=== PATIENT | male | born 1980 | race Caucasian/White ===

== ENCOUNTER 2020-04-06 15:30 | Outpatient (REF) | payer OTHER, SELFPAY | END 2020-04-06 15:31 | disposition home or self-care (01) | LOC: HO.LAB 15:30 | PROVIDERS: Visit Provider Nurse Practitioner Family | DX: J98.8 Other specified respiratory disorders (principal); Z20.822 Contact with and (suspected) exposure to COVID-19 | CPT/HCPCS: 36415; U0003 ==

== ENCOUNTER 2021-07-09 01:42 | Emergency (ER) | payer OTHER, SELFPAY ==
[2021-07-09 01:54] VITALS: BP 144/95; PULSE 75; RESP 18; TEMP 36.4; O2SAT 100; BMI 27.1
--- NOTE | 2021-07-09 04:26 | PC.NURSE ---
Andi's significant other (Fidelina) had to leave patient's bedside to go to work for 5am today. States he doesn't have a phone with him or anything, so can you call me when he gets discharged so I can try to arrange a ride home for him? . Fidelina's phone number is . Andi currently sleeping, awaiting ED MD evaluation.
--- NOTE | 2021-07-09 04:50 | ED.EXTPRO ---
HPI - Extremity Problem General Chief complaint: Extremity Injury, Upper Stated complaint: lac on right hand Time Seen by Provider: 07/09/21 04:45 Source: patient Mode of arrival: ambulatory Limitations: no limitations History of Present Illness HPI Narrative: Patient comes to the emergency room complaining of a laceration to the left palm. Patient was shopping at a knife and accidentally cut the palm of his hand. Patient denies any other injuries Related Data Previous Rx's Medication Instructions Recorded albuterol sulfate 2.5 mg (3 mL) INHALATION Q6H #15 ml 04/06/20 albuterol sulfate 90 mcg/actuation 2 puff INHALATION Q4-6H PRN #6.7 g 04/06/20 aerosol inhaler azithromycin 250 mg tablet See Rx Instructions PO .COMPLEX #6 04/06/20 tab prednisone 20 mg tablet 20 mg PO DAILY 9 Days #18 tab 04/06/20 ondansetron 4 mg disintegrating 4 mg PO Q6H PRN #20 tab 03/23/21 tablet Allergies Allergy/AdvReac Type Severity Reaction Status Date / Time No Known Allergies Allergy Verified 07/09/21 01:54 Review of Systems Review of Systems: Constitutional : No Weight loss, No Fever, No Chills, No Night Sweats, No Fatigue, No Malaise ENT/Mouth : No Hearing loss, No Ear Pain, No Nasal Congestion, No Sinus Pain, No Hoarseness, No sore throat, No Rhinorrhea, No Swallowing Difficulty Eyes: No Eye Pain, No Swelling, No Redness, No Foreign Body, No Discharge, No Vision Changes Cardiovascular : No Chest Pain, No SOB, No Dyspnea on Exertion, No Orthopnea, No Edema, No Palpitations Respiratory : No Cough, No Sputum, No Wheezing, No Smoke Exposure, No Dyspnea Gastrointestinal : No Nausea, No Vomiting, No Diarrhea, No Constipation, No abdominal Pain, No Hematochezia, No Melena Genitourinary : no irregular bleeding, No Dysuria, No Urinary Frequency, No Hematuria, No Urinary Incontinence, No Urgency, No Flank Pain, No Urinary Flow Changes, No Hesitancy Musculoskeletal : No joint pain, No Myalgias, No Joint Swelling Skin : laceration to the palm of the left hand Neuro : No Weakness, No Numbness, No Paresthesias, No Loss of Consciousness, No Dizziness, No Headache Psych : No Anxiety/Panic, No Depression, No SI/HI/AH/VH, No Social Issues, Heme/Lymph: No Bruising, No Bleeding,No Lymphadenopathy Endocrine : No Polyuria, No Polydipsia, No Temperature Intolerance [facility] Social History Social History Advance Directives: No Physical Exam Vital Signs: Vital Signs: Last Vital Signs Temp 97.8 F 07/09/21 04:58 Pulse 67 07/09/21 04:58 Resp 12 07/09/21 04:58 BP 128/89 07/09/21 04:58 Pulse Ox 100 07/09/21 04:58 BMI result Body Mass Index 27.1 Const: Other: Appearance: Alert. Oriented X3. No acute distress. Eyes: Pupils equal, round and reactive to light. ENT: Pharynx normal. Neck: Normal inspection. Neck supple. No lymph nodes noted. No crepitus CVS: Normal heart rate and rhythm. Pulses normal. Normal S1 and S2 Respiratory: No respiratory distress. Breath sounds normal. No Wheezing. No rales Abdomen: Soft and nontender. No rigidity. No distention. Skin: Skin warm and dry. In the palm of the hand there is a 2 cm laceration. Extremities: No lower extremity edema. No Lacerations. No Rash patient is able to flex and extend all fingers of the hand, abduct and adduct. Wound was examined under bloodless field, not tendons were severed Neuro: Oriented X 3. No motor deficit. No sensory deficit. Moving all extremities. No slurred speech. CN 2 through 12 grossly intact Psych: calm, cooperative, normal affect Course Course Course Narrative: Patient was given Tdap booster Laceration was repaired with 3 stitches Procedures Laceration Laceration 1: Site: hand Side (If applicable): left Size (cm): 2 Description: linear and flap Depth: simple, single layer Local Anesthetic: lidocaine 2% Amount of anesthesia used (mL): 6 Pre-repair: wound explored and irrigated extensively Skin layer closed with: nylon Size (cm): 3-0 Number of sutures: 3 Discharge Plan Discharge Clinical Impression: Laceration of hand Patient Disposition: Home, Self-Care Instructions: Laceration (ED) Additional Instructions: Your sutures need to be removed in 7-10 days. If you see signs of infection such as redness, pus drainage, fever chills, please return to the emergency room. follow-up with your primary care physician tomorrow. If you have any worsening or new symptoms, please return to the emergency room or call 911 Prescriptions: No Action prednisone 20 mg tablet 20 mg PO DAILY 9 Days Qty: 18 0RF Rx Instructions: 3 tabs/60mg for 3 days 2 tabs/40mg for 3 days 1 tab/20mg for 3 days albuterol sulfate 90 mcg/actuation HFA aerosol inhaler 2 puff inhalation Q4-6H PRN (Reason: shortness of breath or wheezing) Qty: 6.7 0RF albuterol sulfate 2.5 mg /3 mL (0.083 %) solution for nebulization 2.5 mg inhalation Q6H Qty: 15 0RF azithromycin 250 mg tablet See Rx Instructions PO .COMPLEX Qty: 6 0RF Rx Instructions: take 500 mg today (day 1), then 250 mg for 4 days (days 2-5) PO ondansetron 4 mg tablet,disintegrating 4 mg PO Q6H PRN (Reason: nausea and vomiting) Qty: 20 0RF Stand Alone Forms: Work/School Release
[2021-07-09 04:58] VITALS: BP 128/89; PULSE 67; RESP 12; TEMP 36.6; O2SAT 100
[2021-07-09] MEDS: Diphth,Pertus(ACell),Tet Adult 0.5 ML SYRINGE IM (05:00)
[2021-07-09] MEDS: Lidocaine HCl 2 % MPF 5 ML VIAL 10 ML INFILTRATI (05:03)
== END 2021-07-09 05:55 | disposition home or self-care (01) ==
PROVIDERS: Emergency Provider Emergency Medicine
DX: S61.412A Laceration without foreign body of left hand, initial encounter (principal); S60.512A Abrasion of left hand, initial encounter; W26.0XXA Contact with knife, initial encounter; Y93.9 Activity, unspecified; Y92.9 Unspecified place or not applicable; Y99.9 Unspecified external cause status; Z79.899 Other long term (current) drug therapy
CPT/HCPCS: 12001; 90471; 90715; 99284

== ENCOUNTER 2021-11-23 12:14 | Inpatient (IN) | payer OTHER, SELFPAY ==
--- NOTE | ~2021-11-23 | XR_ITS ---
EXAMINATION: XR CHEST CLINICAL INFORMATION: Chest pain COMPARISON: None TECHNIQUE: 2 views of the chest were obtained. FINDINGS: The mediastinum, jose, vasculature, and visualized pleural margins are within normal limits. Slightly low lung volumes. No consolidation, mass or major zone of atelectasis. No suspicious finding in the visualized upper abdomen XR/XR chest 2V IMPRESSION: No etiology for chest pain demonstrated
--- NOTE | ~2021-11-23 | US_ITS ---
EXAMINATION: US ABDOMEN COMPLETE CLINICAL INFORMATION: Abdominal pain and elevated LFTs. COMPARISON: None TECHNIQUE: Real-time imaging of the abdominal viscera. FINDINGS: PANCREAS: The pancreas is obscured by overlying gas. ABDOMINAL AORTA: The proximal, mid, and distal segments are normal in caliber. INFERIOR VENA CAVA: Visualized portions are normal. LIVER: The liver is normal in size. The liver contour is normal. Parenchymal echogenicity is increased. No focal hepatic lesion. There is no intrahepatic biliary duct dilatation seen. GALLBLADDER: There are several echogenic mobile stones with normal wall thickness of 0.20 cm. No pericholecystic fluid collection. No tenderness in the right upper quadrant by ultrasound probe. COMMON BILE DUCT: Normal in caliber measuring 0.27 cm in diameter. RIGHT KIDNEY: Normal. No hydronephrosis. No renal calculi or focal parenchymal lesions. The kidney measures 10.2 cm in maximum dimension. LEFT KIDNEY: Normal. No hydronephrosis. No renal calculi or focal parenchymal lesions. The kidney measures 11.7 cm in maximum dimension. SPLEEN: Normal. The spleen measures 13.4 cm in maximum dimension. FREE FLUID: None. US/US abdomen complete IMPRESSION: Cholelithiasis without wall thickening. Hepatic steatosis without focal lesion. The rest of the abdominal ultrasound is unremarkable.
--- NOTE | 2021-11-23 12:16 | ECG_ITS ---
Test Reason : chest pain Blood Pressure : / mmHG Vent. Rate : 079 BPM Atrial Rate : 079 BPM P-R Int : 144 ms QRS Dur : 094 ms QT Int : 388 ms P-R-T Axes : 007 059 -02 degrees QTc Int : 444 ms Normal sinus rhythm Abnormal QRS-T angle, consider primary T wave abnormality Abnormal ECG No previous ECGs available Referred By: Generic ED Physician Electronically Signed By:JOHANA ALEJO
[2021-11-23 12:26] VITALS: BP 144/91; PULSE 86; RESP 18; O2SAT 98; BMI 27.1
[2021-11-23 13:18] LABS: Magnesium 1.6 mg/dL (1.6-2.6)
[2021-11-23 13:23] LABS: Alanine Aminotransferase 82 U/L (0-40); Albumin Level 3.7 g/dL (3.5-5.0); Alkaline Phosphatase 102 U/L (39-117); Aspartate Amino Transferase 179 U/L (5-37); Bilirubin Direct 0.9 mg/dL (0.0-0.5); Bilirubin Total 1.7 mg/dL (0.0-1.0); Total Protein 7.8 g/dL (6.5-8.0)
--- NOTE | 2021-11-23 15:35 | ED_ITS ---
HPI - Chest Pain General Chief Complaint: Chest Pain Stated Complaint: Upper L chest pain Time Seen by Provider: 11/23/21 15:22 Source: patient Mode of arrival: ambulatory Limitations: no limitations History of Present Illness HPI narrative: 41-year-old male with a history of alcohol abuse and dependence, asthma who presents to the ER for evaluation of intermittent left-sided chest pain for the last 2 weeks. He feels like it is anxiety related because it comes and goes when he is anxious. It is located in his left upper chest and does not radiate. It is sharp in nature. He has no pain at present. He also reports that he has significant bruising on his left abdomen and his thighs with no known injury. Koffi ruth is a daily drinker and drinks about 6 or 7 beers per day. He has been through withdrawal at home, never hospitalized. In the past he has been told he has thrombocytopenia. He presents with his girlfriend who helps provide history. She states he vomits almost every morning. He does not eat any food because he never has an appetite. He wakes up with new bruises frequently and denies falls or trauma. He has a large bruise on the left side of his abdomen for the last 3 weeks without pain. He also has them on his bilateral lower extremities. He also complains of chronic fatigue for the last 1 year. MD complaint: chest pain Pertinent past history: asthma and other (ETOH abuse) Onset (ago): week(s) Timing of current episode: episodic Prior episodes: Yes Onset: during rest Pain location: left chest Pain radiation: none Severity: moderate Pain scale (0-10): 5 Quality: sharp Relieving factors: rest Associated symptoms: nausea, vomiting, diaphoresis and other (tremors) Treatment prior to arrival: none Risk Factors Coronary artery disease risk factors: none Thoracic aortic dissection risk factors: none Related Data Previous Rx's Medication Instructions Recorded albuterol sulfate 2.5 mg/3 mL 2.5 mg (3 mL) inhalation Q6H #15 mL 04/06/20 (0.083 %) solution for nebulization albuterol sulfate 90 mcg/actuation 2 puff inhalation Q4-6H PRN 04/06/20 aerosol inhaler shortness of breath or wheezing #6.7 grams azithromycin 250 mg tablet See Rx Instructions PO .COMPLEX #6 04/06/20 tabs prednisone 20 mg tablet 20 mg PO DAILY 9 days #18 tabs 04/06/20 ondansetron 4 mg disintegrating 4 mg PO Q6H PRN nausea and 03/23/21 tablet vomiting #20 tabs Allergies Allergy/AdvReac Type Severity Reaction Status Date / Time No Known Allergies Allergy Verified 07/09/21 01:54 Review of Systems Review of Systems: Constitutional: No Fever, + Chills ENT/Mouth: No sore throat, No Rhinorrhea, No Swallowing Difficulty Eyes: No Eye Pain, No Swelling, No Redness Cardiovascular: + Chest Pain, No SOB, No Orthopnea, No Edema Respiratory: No Cough, No Sputum, No Wheezing, No dyspnea Gastrointestinal: + Nausea, + Vomiting, No Diarrhea, No abdominal Pain, No Hematochezia, No Melena Genitourinary: No Dysuria, No Urinary Frequency, No Hematuria Musculoskeletal: No joint pain, No Myalgias Skin: No Skin Lesions, No rash Neuro: No Weakness, No Numbness, No Dizziness, No Headache Psych: + Anxiety/Panic, + Depression Heme/Lymph: + Bruising, No Lymphadenopathy Endocrine: No Polyuria, No Polydipsia PMFSH Social History Social History Advance Directives: No Advance Directives Information Provided: No Physical Exam Vital Signs: Vital Signs: Last Vital Signs Pulse 86 11/23/21 12:26 Resp 18 11/23/21 12:26 BP 144/91 H 11/23/21 12:26 Pulse Ox 98 11/23/21 12:26 O2 Del Method 11/23/21 12:26 BMI result Body Mass Index 27.1 Appearance: Alert. Oriented X3. No acute distress. Eyes: Pupils equal, round and reactive to light. large pedunculated mole under left eye ENT: Pharynx normal. Neck: Normal inspection. Neck supple. CVS: Normal heart rate and rhythm. Pulses normal. Non-tender chest pain Respiratory: No respiratory distress. Breath sounds normal. Abdomen:Moderate sized ecchymotic area on the left side of abdomen, Soft and nontender. +BS x4 Skin: Skin warm and dry. Normal skin color. Normal skin turgor. No rashes. Extremities: Multiple moderate sized ecchymosis in various stages of healing on his bilateral LE, left upper arm. minimally tender. Neuro: Oriented X 3. No motor deficit. No sensory deficit. Course Course Course Narrative: 41 yo male with history of ETOH abuse/dependence, asthma and thrombocytopenia who presents to the ER for evaluation of intermittent left sided chest pains x2 weeks, spontaneous bruising, fatigue and recurrent vomiting. On exam he has significant ecchymosis on his bilateral LE, LUE and abdominal wall. CBC, coags, CMP pending. Reevaluation(s) Reevaluation #1: patient vomiting (nonbloody but bilious) and tremulous. IV established and zofran and fluids given. concern for possible early etoh withdrawal. will monitor CIWAs. platelets 26K. H/H is normal with WBC 4.0. Renal function normal. Mild elevation of liver enzymes and mild coagulopathy. No evidence of active bleeding. Records requested from [facility] One year ago. It appears as if his platelet count was some routine 50 and 60,000 at that time. spoke at length with the patient about importance of abstaining from alcohol and he is in agreement he needs detox. spoke with Dr. Rodriguez from [facility], would recommend admission for close observation and trending of platelets, and H/H. Reevaluation #2: nausea improved. tolerating ice chips. will plan to start PO phenobarbital protocol for etoh withdrawal and admit for further management. patient and updated on plan of care. hospitalist TT for admission Consultations Consultation #1: [facility] - Dr. Rodriguez MDM - Chest Pain Lab Data Result diagrams: 11/23/21 15:58 11/23/21 15:58 Labs: Lab Results 11/23/21 11/23/21 11/23/21 Range/Units 12:47 12:47 15:58 WBC 4.0 L (4.8-10.8) X10*3/uL RBC 4.79 (4.60-5.80) X10*6/uL Hgb 14.3 (14.0-18.0) g/dl Hct 42.5 (42.0-52.0) % MCV 88.7 (80.0-98.0) fL MCH 29.9 (27.0-33.0) pg MCHC 33.6 (31.0-36.0) g/dl RDW 14.8 (11.0-16.0) % Plt Count 26 L (160-400) X10*3/uL MPV 9.9 (9.4-12.4) fL Immature Gran % (Auto) 0.3 (0.0-0.4) % Neut % (Auto) 58.3 (45-73) % Lymph % (Auto) 30.1 (20-40) % Burnett % (Auto) 8.8 (2-11) % Eos % (Auto) 1.5 (0-4) % Baso % (Auto) 1.0 (0-2) % Lymph # (Auto) 1.2 (1.2-4.9) X10*3/uL Burnett # (Auto) 0.4 (0.1-1.2) X10*3/uL Eos # (Auto) 0.1 (0.0-0.4) X10*3/uL Baso # (Auto) 0.0 (0.0-0.2) X10*3/uL Abs Immat Gran (auto) 0.01 (0.00-0.03) X10*3/uL Absolute Neuts (auto) 2.3 (2.0-8.3) x10*3/uL Absolute Nucleated RBC 0.000 (0.0-0.012) X10*3/uL Nucleated RBC % (auto) 0.0 (0.0-0.2) /100WBC PT (10.0-13.1) SEC INR (0.9-1.1) APTT (26.0-36.4) SEC Sodium (135-145) mmol/L Potassium (3.3-5.1) mmol/L Chloride (96-108) mmol/L Carbon Dioxide (22-29) mmol/L Anion Gap (12-20) BUN (9-16) mg/dL Creatinine (0.5-1.4) mg/dL Estim Creat Clear Calc Estimated GFR Random Glucose (60-115) mg/dL Calcium (8.4-10.2) mg/dL Magnesium 1.6 (1.6-2.6) mg/dL Total Bilirubin 1.7 H (0.0-1.0) mg/dL Direct Bilirubin 0.9 H (0.0-0.5) mg/dL AST 179 H (5-37) U/L ALT 82 H (0-40) U/L Alkaline Phosphatase 102 (39-117) U/L Troponin I High Sens (<3.5-35.0) ng/L Total Protein 7.8 (6.5-8.0) g/dL Albumin 3.7 (3.5-5.0) g/dL Urine Color Urine Appearance Urine pH (5.0-9.0) Ur Specific [place] (1.005-1.025) Urine Protein (Neg-Trace) mg/dL Urine Glucose (UA) (Negative) mg/dL Urine Ketones (Negative) mg/dL Urine Blood (Negative) Urine Nitrite (Negative) Ur Leukocyte Esterase (Negative) Urine RBC (0-2) /HPF Urine WBC (0-5) /HPF Ur Squamous Epith Cells (0-2) /HPF Urine Bacteria (None Seen) Hyaline Casts (0-2) /LPF Ethyl Alcohol mg/dL 11/23/21 11/23/21 11/23/21 Range/Units 15:58 15:58 15:58 WBC (4.8-10.8) X10*3/uL RBC (4.60-5.80) X10*6/uL Hgb (14.0-18.0) g/dl Hct (42.0-52.0) % MCV (80.0-98.0) fL MCH (27.0-33.0) pg MCHC (31.0-36.0) g/dl RDW (11.0-16.0) % Plt Count (160-400) X10*3/uL MPV (9.4-12.4) fL Immature Gran % (Auto) (0.0-0.4) % Neut % (Auto) (45-73) % Lymph % (Auto) (20-40) % Burnett % (Auto) (2-11) % Eos % (Auto) (0-4) % Baso % (Auto) (0-2) % Lymph # (Auto) (1.2-4.9) X10*3/uL Burnett # (Auto) (0.1-1.2) X10*3/uL Eos # (Auto) (0.0-0.4) X10*3/uL Baso # (Auto) (0.0-0.2) X10*3/uL Abs Immat Gran (auto) (0.00-0.03) X10*3/uL Absolute Neuts (auto) (2.0-8.3) x10*3/uL Absolute Nucleated RBC (0.0-0.012) X10*3/uL Nucleated RBC % (auto) (0.0-0.2) /100WBC PT (10.0-13.1) SEC INR (0.9-1.1) APTT (26.0-36.4) SEC Sodium 144 (135-145) mmol/L Potassium 4.2 (3.3-5.1) mmol/L Chloride 106 (96-108) mmol/L Carbon Dioxide 25 (22-29) mmol/L Anion Gap 17 (12-20) BUN 10 (9-16) mg/dL Creatinine 0.76 (0.5-1.4) mg/dL Estim Creat Clear Calc 122.0 Estimated GFR > 60 Random Glucose 98 (60-115) mg/dL Calcium 8.5 (8.4-10.2) mg/dL Magnesium (1.6-2.6) mg/dL Total Bilirubin (0.0-1.0) mg/dL Direct Bilirubin (0.0-0.5) mg/dL AST (5-37) U/L ALT (0-40) U/L Alkaline Phosphatase (39-117) U/L Troponin I High Sens < 3.5 (<3.5-35.0) ng/L Total Protein (6.5-8.0) g/dL Albumin (3.5-5.0) g/dL Urine Color Urine Appearance Urine pH (5.0-9.0) Ur Specific [place] (1.005-1.025) Urine Protein (Neg-Trace) mg/dL Urine Glucose (UA) (Negative) mg/dL Urine Ketones (Negative) mg/dL Urine Blood (Negative) Urine Nitrite (Negative) Ur Leukocyte Esterase (Negative) Urine RBC (0-2) /HPF Urine WBC (0-5) /HPF Ur Squamous Epith Cells (0-2) /HPF Urine Bacteria (None Seen) Hyaline Casts (0-2) /LPF Ethyl Alcohol 180 mg/dL 11/23/21 11/23/21 Range/Units 18:32 18:32 WBC (4.8-10.8) X10*3/uL RBC (4.60-5.80) X10*6/uL Hgb (14.0-18.0) g/dl Hct (42.0-52.0) % MCV (80.0-98.0) fL MCH (27.0-33.0) pg MCHC (31.0-36.0) g/dl RDW (11.0-16.0) % Plt Count (160-400) X10*3/uL MPV (9.4-12.4) fL Immature Gran % (Auto) (0.0-0.4) % Neut % (Auto) (45-73) % Lymph % (Auto) (20-40) % Burnett % (Auto) (2-11) % Eos % (Auto) (0-4) % Baso % (Auto) (0-2) % Lymph # (Auto) (1.2-4.9) X10*3/uL Burnett # (Auto) (0.1-1.2) X10*3/uL Eos # (Auto) (0.0-0.4) X10*3/uL Baso # (Auto) (0.0-0.2) X10*3/uL Abs Immat Gran (auto) (0.00-0.03) X10*3/uL Absolute Neuts (auto) (2.0-8.3) x10*3/uL Absolute Nucleated RBC (0.0-0.012) X10*3/uL Nucleated RBC % (auto) (0.0-0.2) /100WBC PT 15.1 H (10.0-13.1) SEC INR 1.3 H (0.9-1.1) APTT 36.6 H (26.0-36.4) SEC Sodium (135-145) mmol/L Potassium (3.3-5.1) mmol/L Chloride (96-108) mmol/L Carbon Dioxide (22-29) mmol/L Anion Gap (12-20) BUN (9-16) mg/dL Creatinine (0.5-1.4) mg/dL Estim Creat Clear Calc Estimated GFR Random Glucose (60-115) mg/dL Calcium (8.4-10.2) mg/dL Magnesium (1.6-2.6) mg/dL Total Bilirubin (0.0-1.0) mg/dL Direct Bilirubin (0.0-0.5) mg/dL AST (5-37) U/L ALT (0-40) U/L Alkaline Phosphatase (39-117) U/L Troponin I High Sens (<3.5-35.0) ng/L Total Protein (6.5-8.0) g/dL Albumin (3.5-5.0) g/dL Urine Color Dark Yellow Urine Appearance Clear Urine pH 6.5 (5.0-9.0) Ur Specific [place] >= 1.030 H (1.005-1.025) Urine Protein 30 (1+) H (Neg-Trace) mg/dL Urine Glucose (UA) Negative (Negative) mg/dL Urine Ketones Trace (Negative) mg/dL Urine Blood Negative (Negative) Urine Nitrite Positive H (Negative) Ur Leukocyte Esterase Trace H (Negative) Urine RBC 0-2 (0-2) /HPF Urine WBC 0-5 (0-5) /HPF Ur Squamous Epith Cells 0-2 (0-2) /HPF Urine Bacteria None Seen (None Seen) Hyaline Casts 0-2 (0-2) /LPF Ethyl Alcohol mg/dL Critical Care Time Critical Care Time Critical Care Time: Yes Total Critical Care Time: 36 Attestation: I have personally provided critical care time exclusive of time spent on separately billable procedures. Time includes review of lab data, radiology results, discussion with consultants, and monitoring for potential decompensation. Intervention performed as documented. Discharge Plan Discharge Clinical Impression: Thrombocytopenia, Alcohol abuse Patient Disposition: Admitted As Inpatient
[2021-11-23 16:04] LABS: MANUAL DIFF FLAG NO
[2021-11-23 16:07] LABS: Eosinophils Absolute Auto 0.1 X10*3/uL (0.0-0.4); Eosinophils Percent Auto 1.5 % (0-4); Hematocrit 42.5 % (42.0-52.0); Hemoglobin 14.3 g/dl (14.0-18.0); Imm Gran Abs Auto 0.01 X10*3/uL (0.00-0.03); Imm Gran Pct Auto 0.3 % (0.0-0.4); Lymphocytes Absolute Auto 1.2 X10*3/uL (1.2-4.9); Lymphocytes Percent Auto 30.1 % (20-40); Mean Corpuscular HGB Conc 33.6 g/dl (31.0-36.0); Mean Corpuscular Hemoglobin 29.9 pg (27.0-33.0); Mean Corpuscular Volume 88.7 fL (80.0-98.0); Mean Platelet Volume 9.9 fL (9.4-12.4); Monocytes Absolute Auto 0.4 X10*3/uL (0.1-1.2); Monocytes Percent Auto 8.8 % (2-11); Neutrophils Absolute Auto 2.3 x10*3/uL (2.0-8.3); Neutrophils Percent Auto 58.3 % (45-73); Platelet Count 26 X10*3/uL (160-400); Red Blood Count 4.79 X10*6/uL (4.60-5.80); Red Cell Distribution Width 14.8 % (11.0-16.0)
[2021-11-23 16:17] LABS: Ethanol 180 mg/dL
[2021-11-23 16:22] LABS: Anion Gap 17 (12-20); Blood Urea Nitrogen 10 mg/dL (9-16); Calcium 8.5 mg/dL (8.4-10.2); Carbon Dioxide 25 mmol/L (22-29); Chloride 106 mmol/L (96-108); Estimated Glomerular Filt Rate > 60; Glucose Random 98 mg/dL (60-115); Potassium 4.2 mmol/L (3.3-5.1); Sodium 144 mmol/L (135-145)
[2021-11-23 16:28] LABS: Troponin-I High Sensitivity < 3.5 ng/L (<3.5-35.0)
[2021-11-23] MEDS: Ondansetron ODT 4 MG TAB.RAPDIS TRANSLINGU (17:13)
[2021-11-23] MEDS: 0.9 % Sodium Chloride 1,000 ML 999 ML IVCONT (18:37)
[2021-11-23 18:47] LABS: Appearance Urine Clear; Color Urine Dark Yellow; Glucose Urine UA Negative (Negative); Leukocyte Esterase Urine Trace (Negative); Nitrite Urine Positive (Negative); PH 6.5 (5.0-9.0); Specific Gravity - Urine >= 1.030 (1.005-1.025); Urine Blood Negative (Negative); Urine Ketones Trace mg/dL (Negative); Urine Protein 30 (1+) mg/dL (Neg-Trace)
[2021-11-23 18:48] LABS: INTERNATIONAL NORM RATIO 1.3 (0.9-1.1); Prothrombin Time 15.1 SEC (10.0-13.1)
[2021-11-23 18:51] LABS: Partial Thromboplastin Time 36.6 SEC (26.0-36.4)
[2021-11-23 18:59] LABS: Bacteria Urine None Seen (None Seen); Hyaline Casts Urine 0-2 /LPF (0-2); RBC Urine 0-2 /HPF (0-2); Squamous Epithelial Cell Urine 0-2 /HPF (0-2); UACC Culture Trigger YES; WBC Urine 0-5 /HPF (0-5)
--- NOTE | 2021-11-23 19:49 | PHA.MEDREC ---
Pharmacy Consult ? Medication Reconciliation Pharmacy has completed the medication reconciliation.
[2021-11-23 20:10] VITALS: BP 140/79; PULSE 72; RESP 18; O2SAT 99
[2021-11-23] MEDS: PHENobarbitaL sodium 130 MG/ML IM ONCE 264 MG IM (20:23)
[2021-11-23 21:07] LABS: COVID-19 Test Negative (Negative)
--- NOTE | 2021-11-23 21:27 | P.HPHOSP_ITS ---
History of Present Illness Date of Service: 11/23/21 Chief Complaint: chest pain This is a 41-year-old male with past medical history of alcohol abuse, as well as asthma presents to the hospital with complaints of left-sided chest pain. Patient reports that the pain occurred spontaneously, feels like pressure, about 4/10, nonradiating, no exacerbating or alleviating factors, intermittent. Patient reports that when he has action is also gets this pain, he denies any recent travel, no recent sick contacts, no recent immobilization or history of cancer. No recent surgery. He denies any cough, no shortness of breath, he has also had vomiting for the past 6 months, he reports that he has epigastric abdominal pain that is been going on for the past 6 months, associated with 1-2 episodes of vomiting daily. He has also had poor oral intake and low appetite. Patient also reports that for the past several months has had bruises all over his body that occurs spontaneously without any trauma or injury. He does endorse that since childhood he has had recurrent nose bleeds that last 1-2 hours, he also endorses bleeding from the gums every time he brushes his teeth. He denies any hematuria and no blood in vomit. No melena or hematochezia. Does reports that he drinks >6 bottles of beer daily, has had withdrawals before but no withdrawal seizures. He denies any headache, change in vision, no urinary symptoms and no lower extremity edema. No numbness tingling or weakness. On arrival the ED patient hemodynamically stable Labs are significant for WBC count of 4.0, [place] [address], PT of 15.1, INR of 1.3, PTT of 36.6, total bili of 1.7 AST of 179, ALT of 82 urine positive for nitrites and leukocyte Estrace and some WBC Troponin negative EKG should reviewed by me shows T-wave inversions in V1 with no other significant abnormality no previous EKG for comparison Chest x-ray negative, Review of Systems Review of Systems: Yes all other systems are reviewed and are negative [facility] Medical History (Updated 11/23/21 @ 21:40 by Shon Mckeon MD) Asthma Family History (Updated 11/23/21 @ 21:38 by Shon Mckeon MD) Mother Lupus Surgical History (Updated 11/23/21 @ 21:39 by Shon Mckeon MD) S/P emergency tracheotomy for assistance in breathing Social History Advance Directives: No Advance Directives Information Provided: No Meds Allergies Allergy/AdvReac Type Severity Reaction Status Date / Time No Known Allergies Allergy Verified 07/09/21 01:54 Active Medications: Current Medications Acetaminophen (Acetaminophen 325 Mg Tablet) 650 mg PO Q6H PRN PRN Reason: Pain, Mild (Pain Scale 1-3) Docusate Sodium (Docusate Sodium 100 Mg Capsule) 100 mg PO DAILY PRN PRN Reason: Constipation Ondansetron HCl (Ondansetron Hcl 4 Mg/2 Ml Vial) 4 mg IVPUSH Q8H PRN PRN Reason: Nausea and Vomiting Pharmacy Consult (Consult Rx Etoh Phenob Po Only) 1 each MISCELLANE ONCE PRN; Protocol PRN Reason: Consult order Pharmacy Consult (Consult Rx Perform Med Rec) 1 each MISCELLANE ONCE PRN PRN Reason: Consult order Phenobarbital (Phenobarbital 15 Mg Tablet) 45 mg PO BID [facility] Stop: 11/25/21 21:01 Phenobarbital (Phenobarbital 30 Mg Tablet) 30 mg PO BID [facility] Stop: 11/27/21 21:01 Phenobarbital (Phenobarbital 15 Mg Tablet) 15 mg PO DAILY [facility] Stop: 11/29/21 09:01 Phenobarbital Sodium (Phenobarbital Sodium 130 Mg/Ml Vial Im Q3hx2) 198 mg IM Q3H [facility] Stop: 11/24/21 03:01 Sodium Chloride (0.9 % Sodium Chloride Flush 3 Ml Syringe) 3 ml IVFLUSH QSHIFT [facility] Physical Exam Vital Signs and Narrative: Vital Signs: Last Vital Signs Pulse 72 11/23/21 20:10 Resp 18 11/23/21 20:10 BP 140/79 H 11/23/21 20:10 Pulse Ox 99 11/23/21 20:10 O2 Del Method 11/23/21 20:10 BMI result Body Mass Index 27.1 Const: General: cooperative and no acute distress Orientation/consciousness: patient oriented x3 Eyes: General: appearance normal, both eyes and all related structures Resp: Effort & Inspection: normal respiratory effort Auscultation: clear to auscultation bilaterally Cardio: Rate: regular rate Rhythm: regular rhythm GI: Other: Has mild epigastric pain, no rebound or guarding Palpation (GI): Soft to palpation Auscultation: normal bowel sounds Skin: Other: Multiple ecchymosis scattered throughout the body including on his thighs, arms Neuro: General: patient oriented x3 Cognition (Neuro): normal cognition Extrem: General: Yes normal to inspection and Yes no pedal edema Results Labs CBC and Chem 7: 11/23/21 15:58 11/23/21 15:58 Labs: Laboratory Results - last 24 hr 11/23/21 11/23/21 11/23/21 12:47 12:47 15:58 MCV 88.7 MCH 29.9 MCHC 33.6 RDW 14.8 Plt Count 26 L MPV 9.9 Immature Gran % (Auto) 0.3 Neut % (Auto) 58.3 Lymph % (Auto) 30.1 [place] % (Auto) 8.8 Eos % (Auto) 1.5 Baso % (Auto) 1.0 Lymph # (Auto) 1.2 [place] # (Auto) 0.4 Eos # (Auto) 0.1 Baso # (Auto) 0.0 Abs Immat Gran (auto) 0.01 Absolute Neuts (auto) 2.3 Absolute Nucleated RBC 0.000 Nucleated RBC % (auto) 0.0 PT INR APTT Anion Gap Estim Creat Clear Calc Estimated GFR Random Glucose Calcium Magnesium 1.6 Total Bilirubin 1.7 H Direct Bilirubin 0.9 H AST 179 H ALT 82 H Alkaline Phosphatase 102 Total Protein 7.8 Albumin 3.7 Urine Color Urine Appearance Urine pH Ur Specific [place] Urine Protein Urine Glucose (UA) Urine Ketones Urine Blood Urine Nitrite Ur Leukocyte Esterase Urine RBC Urine WBC Ur Squamous Epith Cells Urine Bacteria Hyaline Casts Ethyl Alcohol COVID-19 ([facility]) COVID-19 Clin Com 11/23/21 11/23/21 11/23/21 15:58 15:58 18:32 MCV MCH MCHC RDW Plt Count MPV Immature Gran % (Auto) Neut % (Auto) Lymph % (Auto) [place] % (Auto) Eos % (Auto) Baso % (Auto) Lymph # (Auto) [place] # (Auto) Eos # (Auto) Baso # (Auto) Abs Immat Gran (auto) Absolute Neuts (auto) Absolute Nucleated RBC Nucleated RBC % (auto) PT 15.1 H INR 1.3 H APTT 36.6 H Anion Gap 17 Estim Creat Clear Calc 122.0 Estimated GFR > 60 Random Glucose 98 Calcium 8.5 Magnesium Total Bilirubin Direct Bilirubin AST ALT Alkaline Phosphatase Total Protein Albumin Urine Color Urine Appearance Urine pH Ur Specific [place] Urine Protein Urine Glucose (UA) Urine Ketones Urine Blood Urine Nitrite Ur Leukocyte Esterase Urine RBC Urine WBC Ur Squamous Epith Cells Urine Bacteria Hyaline Casts Ethyl Alcohol 180 COVID-19 ([facility]) COVID-19 Clin Com 11/23/21 11/23/21 18:32 20:23 MCV MCH MCHC RDW Plt Count MPV Immature Gran % (Auto) Neut % (Auto) Lymph % (Auto) [place] % (Auto) Eos % (Auto) Baso % (Auto) Lymph # (Auto) [place] # (Auto) Eos # (Auto) Baso # (Auto) Abs Immat Gran (auto) Absolute Neuts (auto) Absolute Nucleated RBC Nucleated RBC % (auto) PT INR APTT Anion Gap Estim Creat Clear Calc Estimated GFR Random Glucose Calcium Magnesium Total Bilirubin Direct Bilirubin AST ALT Alkaline Phosphatase Total Protein Albumin Urine Color Dark Yellow Urine Appearance Clear Urine pH 6.5 Ur Specific [place] >= 1.030 H Urine Protein 30 (1+) H Urine Glucose (UA) Negative Urine Ketones Trace Urine Blood Negative Urine Nitrite Positive H Ur Leukocyte Esterase Trace H Urine RBC 0-2 Urine WBC 0-5 Ur Squamous Epith Cells 0-2 Urine Bacteria None Seen Hyaline Casts 0-2 Ethyl Alcohol COVID-19 ([facility]) Negative COVID-19 Clin Com See Note Imaging Radiologist's Impressions: Impressions Chest X-Ray 11/23/21 12:59 IMPRESSION: No etiology for chest pain demonstrated Assessment and Plan (1) Chest pain: Status: Acute (2) Thrombocytopenia: Status: Acute (3) Alcohol abuse: Status: Acute (4) Nausea & vomiting: Qualifiers: Vomiting type: bilious vomiting Qualified Code(s): R11.14 - Bilious vomiting Status: Acute (5) Alcohol withdrawal: Qualifiers: Complication of substance-induced condition: uncomplicated Qualified Code(s): F10.930 - Alcohol use, unspecified with withdrawal, uncomplicated Status: Acute (6) Coagulopathy: Status: Acute Plan 41-year-old male with past medical history of asthma as well as alcohol abuse presents to the hospital with complaints of left-sided chest pain as well as spontaneous bruising and nausea vomiting, found to have thrombocytopenia # thrombocytopenia - likely acute on chronic in the setting of alcohol abuse although other etio logies cannot be ruled out - records from previous hospitalization in outside hospital indicate thro mbocytopenia in the past - currently has no active bleeding - hemoglobin stable - does have coagulopathy with abnormal PT, INR and PTT - with this time will consult Hematology-Oncology - repeat CBC daily and follow platelet count - transfuse if active/acute bleed or platelet drop below 10 - will likely require further workup for the thrombocytopenia # chest pain - noncardiac - troponin negative - EKG shows no acute suggestive of ACS although he does have an abnormal T-wave in lead V1 - symptomatic relief with Tylenol # nausea vomiting - likely secondary to gastritis in the setting of alcohol abuse - IV fluid, antiemetics # coagulopathy - likely multifactorial in the setting of alcohol abuse and possibly underlying hematological ds given thrombocytopenia - will consult hematology # alcohol abuse with withdrawal - uncomplicated - start on phenobarb protocol - thiamine and folic acid - is interested in abstinence, will consult care team DVT prophylaxis: SCDs in the setting of thrombocytopenia Given patient's thrombocytopenia, acute alcohol withdrawal patient will require minimum 2 night hospital stay further management evaluation Quality Stroke Does the patient have a stroke diagnosis?: No VTE Prior VTE?: No VTE Risk Level:: Medical - moderate - high VTE Device Contraindication: N/A - Device Ordered VTE Drug Contraindication: Treatment Not Indicated
[2021-11-23] MEDS: cefTRIAXone sodium 1 GM in 0.9 % Sodium Chloride 50 ML IV (22:36)
[2021-11-23 23:21] LABS: Troponin-I High Sensitivity 4.3 ng/L (<3.5-35.0)
[2021-11-23] MEDS: Lactated Ringers 1,000 ML 100 ML IVCONT (23:28)
[2021-11-24] VITALS: BP 131/81; PULSE 71; RESP 16; TEMP 37.1
[2021-11-24] MEDS: PHENobarbitaL sodium 130 MG/ML VIAL IM Q3Hx2 198 MG IM ×2 (01:16→04:09)
--- NOTE | 2021-11-24 01:27 | PC.NURSE ---
pt medicated per MAR, currently scoring 4 on the CIWA scale. Pt reports inability to sleep which he endorses to be baseline and something he experiencing even at home. RN sent message to [facility] requesting 3mg Melatonin order per pt request to see if it will assist with his inability to fall asleep.
[2021-11-24] MEDS: Melatonin 3 MG TABLET 6 MG PO (03:53)
--- NOTE | 2021-11-24 05:38 | PC.NURSE ---
pt resting comfortably in bed with eyes closed, respirations even and unlabored without distress noted. Pt noted to be NSR on the main line assembler with call ventura in reach.
[2021-11-24] MEDS: Folic Acid 1 MG TABLET PO (08:08)
[2021-11-24] MEDS: Thiamine HCL 100 MG TABLET PO (08:09)
[2021-11-24] MEDS: PHENobarbitaL 15 MG TABLET 45 MG PO ×2 (08:09→23:45)
[2021-11-24] MEDS: ondansetron HCL 4 MG/2 ML VIAL IVPUSH (08:09)
[2021-11-24] MEDS: Lactated Ringers 1,000 ML 100 ML IVCONT (08:10)
[2021-11-24 08:40] LABS: Anion Gap 18 (12-20); Blood Urea Nitrogen 10 mg/dL (9-16); Carbon Dioxide 20 mmol/L (22-29); Chloride 101 mmol/L (96-108); Estimated Glomerular Filt Rate > 60; Glucose Random 120 mg/dL (60-115); Magnesium 1.3 mg/dL (1.6-2.6); Sodium 135 mmol/L (135-145)
[2021-11-24] MEDS: Famotidine/PF 20 MG/2 ML VIAL IVPUSH (08:50)
[2021-11-24 09:02] LABS: Basophils Percent Auto 0.7 % (0-2); Eosinophils Absolute Auto 0.1 X10*3/uL (0.0-0.4); Eosinophils Percent Auto 3.2 % (0-4); Hematocrit 39.8 % (42.0-52.0); Hemoglobin 13.4 g/dl (14.0-18.0); Imm Gran Abs Auto 0.01 X10*3/uL (0.00-0.03); Imm Gran Pct Auto 0.2 % (0.0-0.4); Lymphocytes Absolute Auto 0.8 X10*3/uL (1.2-4.9); Lymphocytes Percent Auto 20.7 % (20-40); Mean Corpuscular HGB Conc 33.7 g/dl (31.0-36.0); Mean Corpuscular Hemoglobin 29.6 pg (27.0-33.0); Mean Corpuscular Volume 88.1 fL (80.0-98.0); Mean Platelet Volume 9.7 fL (9.4-12.4); Monocytes Absolute Auto 0.4 X10*3/uL (0.1-1.2); Monocytes Percent Auto 10.7 % (2-11); Neutrophils Absolute Auto 2.6 x10*3/uL (2.0-8.3); Neutrophils Percent Auto 64.5 % (45-73); Red Blood Count 4.52 X10*6/uL (4.60-5.80); Red Cell Distribution Width 14.4 % (11.0-16.0)
[2021-11-24 09:06] LABS: Platelet Count 24 X10*3/uL (160-400)
--- NOTE | 2021-11-24 09:07 | MHC.CM.PN ---
Patient lives in a house with his and adult [place]89 years of age) and he is functionally independent and working for a [employer]. Home self care vs Care Team interventions r/t ETOH is the tentative dc plan and CM has initiated and will follow for dc planning. PCP is from [facility] and Patient has received [employer] vax x2.
[2021-11-24 09:08] LABS: INTERNATIONAL NORM RATIO 1.4 (0.9-1.1); Prothrombin Time 16.2 SEC (10.0-13.1)
[2021-11-24 10:09] LABS: Alanine Aminotransferase 67 U/L (0-40); Albumin Level 3.3 g/dL (3.5-5.0); Alkaline Phosphatase 95 U/L (39-117); Aspartate Amino Transferase 132 U/L (5-37); Bilirubin Direct 1.6 mg/dL (0.0-0.5); Bilirubin Total 3.4 mg/dL (0.0-1.0)
[2021-11-24 10:34] VITALS: BP 137/84; PULSE 71; RESP 18; TEMP 36.8; O2SAT 99
[2021-11-24] MEDS: 0.9 % Sodium Chloride Flush 3 ML SYRINGE IVFLUSH ×2 (10:40→23:47)
[2021-11-24] MEDS: Magnesium Sulfate/H2O 2 GM/50 ML PIGGYBACK IV ×2 (10:40→15:57)
[2021-11-24 10:47] LABS: MANUAL DIFF FLAG NO
[2021-11-24 12:27] LABS: Lipase 105 U/L (8-78)
--- NOTE | 2021-11-24 13:03 | P.PNIM_ITS ---
Subjective Subjective Date of Service: 11/24/21 Interval History: seen and examined this morning Follow-up for alcohol withdrawal Patient denies any shaking, sweating, anxiety at this time also noted to have thrombocytopenia, reports several months of easy bruising Reporting some epigastric discomfort Review of Systems Review of Systems: Yes all other systems are reviewed and are negative Constitutional Constitutional: Denies chills and Denies fatigue ENT Ears, Nose, Mouth, and Throat: Denies dizziness Cardiovascular Cardiovascular: Denies chest pain, Denies palpitations and Denies dyspnea Respiratory Respiratory: Denies cough and Denies dyspnea Gastrointestinal Gastrointestinal: Reports abdominal pain, Denies diarrhea, Reports nausea and Denies vomiting Neurologic Neurologic: Denies dizziness Endocrine Endocrine: Denies fatigue and Denies palpitations Physical Exam Vital Signs: Vital Signs: Last Vital Signs Temp 98.2 F 11/24/21 10:34 Pulse 71 11/24/21 10:34 Resp 18 11/24/21 10:34 BP 137/84 11/24/21 10:34 Pulse Ox 99 11/24/21 10:34 O2 Del Method 11/24/21 10:34 BMI result Body Mass Index 27.1 Const: General: cooperative, no acute distress, alert and awake Nutritional Appearance: average body habitus Orientation/consciousness: patient oriented x3 Resp: Effort & Inspection: normal respiratory effort and able to speak in complete sentences Auscultation: clear to auscultation bilaterally Cardio: Rate: regular rate Heart sounds: S1 normal heart sound present and S2 normal heart sound present GI: Inspection: No distended Palpation (GI): Soft to palpation and nontender Neuro: General: patient oriented x3 and CN's II-XI intact bilaterally Extrem: General: Yes no pedal edema Objective Data Active Medications Acetaminophen (Acetaminophen 325 Mg Tablet) 650 mg PO Q6H PRN PRN Reason: Pain, Mild (Pain Scale 1-3) Albuterol Sulfate (Albuterol Sulfate 90 Mcg 8 Gm Inhaler) 2 puff INHALE Q4H PRN PRN Reason: shortness of breath or wheezing Docusate Sodium (Docusate Sodium 100 Mg Capsule) 100 mg PO DAILY PRN PRN Reason: Constipation Famotidine (Famotidine/Pf 20 Mg/2 Ml Vial) 20 mg IVPUSH DAILY JAYNE Last Admin: 11/24/21 08:50 Dose: 20 mg Documented By: LAWRENCE Folic Acid (Folic Acid 1 Mg Tablet) 1 mg PO DAILY [facility] Last Admin: 11/24/21 08:08 Dose: 1 mg Documented By: LAWRENCE Lactated Ringer's (Lr) 1,000 mls @ 100 mls/hr IVCONT .Q10H [facility] Last Admin: 11/24/21 08:10 Dose: 100 mls/hr Documented By: LAWRENCE Ceftriaxone Sodium 1 gm/ (Sodium Chloride) 50 mls @ 100 mls/hr IV Q24H [facility] Last Infusion: 11/23/21 23:03 Dose: 0 mls/hr Documented By: ALISE Ondansetron HCl (Ondansetron Hcl 4 Mg/2 Ml Vial) 4 mg IVPUSH Q8H PRN PRN Reason: Nausea and Vomiting Last Admin: 11/24/21 08:09 Dose: 4 mg Documented By: LAWRENCE Pharmacy Consult (Consult Rx Etoh Phenob Po Only) 1 each MISCELLANE ONCE PRN; Protocol PRN Reason: Consult order Pharmacy Consult (Consult Rx Perform Med Rec) 1 each MISCELLANE ONCE PRN PRN Reason: Consult order Phenobarbital (Phenobarbital 15 Mg Tablet) 45 mg PO BID [facility] Stop: 11/25/21 21:01 Last Admin: 11/24/21 08:09 Dose: 45 mg Documented By: LAWRENCE Phenobarbital (Phenobarbital 30 Mg Tablet) 30 mg PO BID [facility] Stop: 11/27/21 21:01 Phenobarbital (Phenobarbital 15 Mg Tablet) 15 mg PO DAILY [facility] Stop: 11/29/21 09:01 Sodium Chloride (0.9 % Sodium Chloride Flush 3 Ml Syringe) 3 ml IVFLUSH QSHIFT [facility] Last Admin: 11/24/21 10:40 Dose: 3 ml Documented By: LAWRENCE Thiamine HCl (Thiamine Hcl 100 Mg Tablet) 100 mg PO DAILY [facility] Last Admin: 11/24/21 08:09 Dose: 100 mg Documented By: LAWRENCE Labs CBC & Chem 7: 11/24/21 08:45 11/24/21 08:15 Labs: Laboratory Results - last 24 hr 11/23/21 11/23/21 11/23/21 12:47 12:47 15:58 MCV 88.7 MCH 29.9 MCHC 33.6 RDW 14.8 Plt Count 26 L MPV 9.9 Immature Gran % (Auto) 0.3 Neut % (Auto) 58.3 Lymph % (Auto) 30.1 [place] % (Auto) 8.8 Eos % (Auto) 1.5 Baso % (Auto) 1.0 Lymph # (Auto) 1.2 [place] # (Auto) 0.4 Eos # (Auto) 0.1 Baso # (Auto) 0.0 Abs Immat Gran (auto) 0.01 Absolute Neuts (auto) 2.3 Absolute Nucleated RBC 0.000 Nucleated RBC % (auto) 0.0 PT INR APTT Anion Gap Estim Creat Clear Calc Estimated GFR Random Glucose Calcium Magnesium 1.6 Total Bilirubin 1.7 H Direct Bilirubin 0.9 H AST 179 H ALT 82 H Alkaline Phosphatase 102 Total Protein 7.8 Albumin 3.7 Lipase Urine Color Urine Appearance Urine pH Ur Specific [place] Urine Protein Urine Glucose (UA) Urine Ketones Urine Blood Urine Nitrite Ur Leukocyte Esterase Urine RBC Urine WBC Ur Squamous Epith Cells Urine Bacteria Hyaline Casts Ethyl Alcohol COVID-19 ([facility]) COVID-19 [employer] 11/23/21 11/23/21 11/23/21 15:58 15:58 18:32 MCV MCH MCHC RDW Plt Count MPV Immature Gran % (Auto) Neut % (Auto) Lymph % (Auto) [place] % (Auto) Eos % (Auto) Baso % (Auto) Lymph # (Auto) [place] # (Auto) Eos # (Auto) Baso # (Auto) Abs Immat Gran (auto) Absolute Neuts (auto) Absolute Nucleated RBC Nucleated RBC % (auto) PT 15.1 H INR 1.3 H APTT 36.6 H Anion Gap 17 Estim Creat Clear Calc 122.0 Estimated GFR > 60 Random Glucose 98 Calcium 8.5 Magnesium Total Bilirubin Direct Bilirubin AST ALT Alkaline Phosphatase Total Protein Albumin Lipase Urine Color Urine Appearance Urine pH Ur Specific [place] Urine Protein Urine Glucose (UA) Urine Ketones Urine Blood Urine Nitrite Ur Leukocyte Esterase Urine RBC Urine WBC Ur Squamous Epith Cells Urine Bacteria Hyaline Casts Ethyl Alcohol 180 COVID-19 ([facility]) COVID-19 [employer] Com 11/23/21 11/23/21 11/24/21 18:32 20:23 08:15 MCV MCH MCHC RDW Plt Count MPV Immature Gran % (Auto) Neut % (Auto) Lymph % (Auto) [place] % (Auto) Eos % (Auto) Baso % (Auto) Lymph # (Auto) [place] # (Auto) Eos # (Auto) Baso # (Auto) Abs Immat Gran (auto) Absolute Neuts (auto) Absolute Nucleated RBC Nucleated RBC % (auto) PT INR APTT Anion Gap 18 Estim Creat Clear Calc 127.0 Estimated GFR > 60 Random Glucose 120 H Calcium 8.0 L Magnesium 1.3 L* Total Bilirubin Direct Bilirubin AST ALT Alkaline Phosphatase Total Protein Albumin Lipase Urine Color Dark Yellow Urine Appearance Clear Urine pH 6.5 Ur Specific [place] >= 1.030 H Urine Protein 30 (1+) H Urine Glucose (UA) Negative Urine Ketones Trace Urine Blood Negative Urine Nitrite Positive H Ur Leukocyte Esterase Trace H Urine RBC 0-2 Urine WBC 0-5 Ur Squamous Epith Cells 0-2 Urine Bacteria None Seen Hyaline Casts 0-2 Ethyl Alcohol COVID-19 ([facility]) Negative COVID-19 Clin Com See Note 11/24/21 11/24/21 11/24/21 08:45 08:45 08:45 MCV 88.1 MCH 29.6 MCHC 33.7 RDW 14.4 Plt Count 24 L MPV 9.7 Immature Gran % (Auto) 0.2 Neut % (Auto) 64.5 Lymph % (Auto) 20.7 [place] % (Auto) 10.7 Eos % (Auto) 3.2 Baso % (Auto) 0.7 Lymph # (Auto) 0.8 L [place] # (Auto) 0.4 Eos # (Auto) 0.1 Baso # (Auto) 0.0 Abs Immat Gran (auto) 0.01 Absolute Neuts (auto) 2.6 Absolute Nucleated RBC 0.000 Nucleated RBC % (auto) 0.0 PT 16.2 H INR 1.4 H APTT Anion Gap Estim Creat Clear Calc Estimated GFR Random Glucose Calcium Magnesium Total Bilirubin 3.4 H Direct Bilirubin 1.6 H AST 132 H ALT 67 H Alkaline Phosphatase 95 Total Protein 7.0 Albumin 3.3 L Lipase 105 H Urine Color Urine Appearance Urine pH Ur Specific [place] Urine Protein Urine Glucose (UA) Urine Ketones Urine Blood Urine Nitrite Ur Leukocyte Esterase Urine RBC Urine WBC Ur Squamous Epith Cells Urine Bacteria Hyaline Casts Ethyl Alcohol COVID-19 ([facility]) COVID-19 Clin Com Microbiology Microbiology Results: Microbiology 11/23/21 19:05 Urine Culture - Preliminary Urine clean catch - Urine gimenez top Culture too young to evaluate. Assessment and Plan (1) Alcohol withdrawal: Status: Acute (2) Thrombocytopenia: Status: Acute Plan 41-year-old male with past medical history of asthma as well as alcohol abuse presents to the hospital with complaints of left-sided chest pain as well as spontaneous bruising and nausea vomiting, found to have thrombocytopenia pancytopenia may be related to alcohol abuse, possible underlying liver dysfunction - does have coagulopathy with abnormal PT, INR and PTT - Hematology-Oncology consult - pending - repeat CBC daily and follow platelet count - transfuse if active/acute bleed or platelet drop below 10 nausea vomiting likely secondary to gastritis in the setting of alcohol abuse lipase 105 - IV pepcid, antiemetics, supportive care elevated LFTs Possibly secondary to alcohol abuse -abdominal US pending -trend LFTs -consider GI consult coagulopathy likely multifactorial in the setting of alcohol abuse and possibly underlying hematological issue given thrombocytopenia -hematology consult pending alcohol abuse with withdrawal - continue phenobarb protocol - continue thiamine and folic acid - care team consult pending hypo magnesemia replace and follow chest pain resolved troponin negative DVT prophylaxis: SCDs in the setting of thrombocytopenia attending - dr. norris Requires ongoing inpatient hospitalization for workup of thrombocytopenia, and management of acute alcohol withdrawal Quality Stroke Does the patient have a stroke diagnosis?: No VTE Prior VTE?: No VTE Risk Level:: Medical - moderate - high VTE Device Contraindication: N/A - Device Ordered VTE Drug Contraindication: Treatment Not Indicated
--- NOTE | 2021-11-24 13:48 | MHC.RECOVRN ---
Met with pt in [facility] to discuss alcohol use. Upon entering, pt laying in bed, eyes closed, easily arouses to voice. Pt difficult at times to engage in conversation. Pt reports alcohol use, approx 8 beers plus one sleeve of nips daily x 6 months. Prior to this, pt reports being a social drinker. Pt denies ATS admissions or previous AUD tx. Pt educated regarding recovery resources, provided with written information as well. Pt to look over information and t/w will follow up at a later time.
[2021-11-24 16:01] LABS: Lactate Dehydrogenase 393 U/L (118-273)
[2021-11-24 16:21] VITALS: BP 131/81; PULSE 69; RESP 18; O2SAT 99
[2021-11-24 18:36] VITALS: BMI 27.1
[2021-11-24 20:00] VITALS: BP 139/89; PULSE 66; RESP 20; TEMP 37.2; O2SAT 98
[2021-11-24 23:44] VITALS: BP 151/99; PULSE 55; RESP 20; TEMP 37; O2SAT 99
[2021-11-24] MEDS: cefTRIAXone sodium 1 GM in 0.9 % Sodium Chloride 50 ML IV (23:46)
[2021-11-25 03:24] VITALS: BP 141/82; PULSE 61; RESP 16; TEMP 36.8; O2SAT 100
[2021-11-25 06:48] LABS: Hematocrit 40.8 % (42.0-52.0); Mean Corpuscular HGB Conc 34.3 g/dl (31.0-36.0); Mean Corpuscular Hemoglobin 30.4 pg (27.0-33.0); Mean Corpuscular Volume 88.5 fL (80.0-98.0); Mean Platelet Volume 10.6 fL (9.4-12.4); Platelet Count 33 X10*3/uL (160-400); Red Blood Count 4.61 X10*6/uL (4.60-5.80); White Blood Count 4.9 X10*3/uL (4.8-10.8)
[2021-11-25 07:24] LABS: Alanine Aminotransferase 61 U/L (0-40); Albumin Level 3.3 g/dL (3.5-5.0); Alkaline Phosphatase 98 U/L (39-117); Anion Gap 15 (12-20); Aspartate Amino Transferase 118 U/L (5-37); Bilirubin Direct 1.5 mg/dL (0.0-0.5); Bilirubin Total 3.3 mg/dL (0.0-1.0); Blood Urea Nitrogen 9 mg/dL (9-16); Calcium 7.9 mg/dL (8.4-10.2); Carbon Dioxide 21 mmol/L (22-29); Chloride 101 mmol/L (96-108); Creatinine Clr Calc Pharmacy 136.3; Estimated Glomerular Filt Rate > 60; Glucose Random 98 mg/dL (60-115); Potassium 4.4 mmol/L (3.3-5.1); Sodium 133 mmol/L (135-145); Total Protein 7.2 g/dL (6.5-8.0)
[2021-11-25] MEDS: PHENobarbitaL 15 MG TABLET 45 MG PO ×2 (07:55→22:16)
[2021-11-25] MEDS: Folic Acid 1 MG TABLET PO (07:55)
[2021-11-25] MEDS: Thiamine HCL 100 MG TABLET PO (07:55)
[2021-11-25] MEDS: Famotidine/PF 20 MG/2 ML VIAL IVPUSH (07:55)
[2021-11-25 08:00] VITALS: BP 126/79; PULSE 73; RESP 16; TEMP 37.1; O2SAT 99
--- NOTE | 2021-11-25 08:41 | P.CDIC_ITS ---
CDI Concurrent Query Documentation Clarification: PHYSICIAN'S DOCUMENTATION REQUEST Date of Query: 11/25/21 0842 Patient Name: Andi Modi Admit Date: 11/23/21 Dear Doctor, Please review the following and provide your response in the progress notes. Clinical Indicators: The diagnosis of asthma was documented in the record: Risk Factors/Clinical Indicators/Treatments PMH: Asthma Home medication-Albuterol Based on the above, please clarify in the Progress Notes further specificity regarding the type and acuity of the asthma: Type: * Mild intermittent - less than 2x/week * Mild persistent - more than 2x/week but not daily * Moderate persistent - daily and may restrict physical activity * Severe persistent - throughout the day with frequent attacks, limiting activities * Exercise induced * Other ? please specify * Unable to determine Use of terms such as suspected, likely, concern for, or probable (associated with a specific diagnosis that is being evaluated, monitored, or treated as if it exists) are acceptable and can be coded in the inpatient setting, when documented at the time of discharge. Thank you, Georgina Griffiths [facility], [facility]IS Extension: [phone] Please use your independent medical judgment in providing your response. THIS QUERY IS PART OF THE PERMANENT MEDICAL RECORD Provider Response: Other (mild inermittent asthma) Other Diagnosis: Mild intermittent asthma
--- NOTE | 2021-11-25 10:09 | PM.EVENT ---
Event Note Date of Service: 11/25/21 Event Note: GI Consult-Full note dictated Imp: Alcohol-induced hepatitis---appears to be mild and resolving with supportive care. I suspect this is the cause of the elevated PT/INR and thrombocytopenia. There is no sign of liver failure. He appears well clinically with a benign abdomen and tolerating po's. There is no need for steroids. He does have gallstones but they seem to be asymptomatic. The remainder of the U/S is reassuring in regard to the normal spleen and no ascites. Rec: Supportive care. Reviewed with the patient the half-way need to avoid alcohol completely. Will check Hep A, B, and C profiles and Monospot today, and ordered F/U labs for the AM. I reviewed his gallstones with him and advised him of potential symptoms that would require a surgical consult in the future. Thanks
--- NOTE | 2021-11-25 11:09 | MHC.CLN ---
PT REPORTED 34# OR WT LOSS ON NURSING ADMISSION ASSESSMENT PREVIOUS WT HX REVEALS: CURRENT WT 78.5KG 78.8 KG (07/09/21) -NO SIGNIFICANT CHANGE 81.6KG (02/04/21)-4% NON-SIGNIFICANT WT CHANGE X 1 YEAR PT DOES NOT QUALIFY FOR WT LOSS AT THIS TIME HOWEVER PT DOES REPORT POOR PO INTAKE RECOMMEND ADDING ENSURE BID TO INCREASE KCALS SUPP TO PROVIDE 700KCALS, 40G PROTEIN MONITOR PO INTAKE CLOSELY
[2021-11-25 11:15] VITALS: BP 146/81; PULSE 71; RESP 16; TEMP 37.3; O2SAT 98
[2021-11-25 11:17] LABS: Monotest Negative (Negative)
[2021-11-25 11:25] LABS: HBS Num1 0.98 mIU/mL (0-7.99); Hepatitis A Antibody IgM 0.16 Index (0-0.79); Hepatitis B Core Antibody Nonreactive (Nonreactive); Hepatitis B Surface Antigen Negative (Negative); ~HepC Num1 0.24 S/CO (0.00-0.79); ~Hepatitis A Antibody IgM Nonreactive (Nonreactive); ~Hepatitis B Surface Antibody NONREACTIVE (Nonreactive); ~Hepatitis C Antibody Nonreactive (Nonreactive)
[2021-11-25 11:26] LABS: Hepatitis A Antibody IgM 0.18 Index (0-0.79); ~Hepatitis A Antibody IgM Nonreactive (Nonreactive)
--- NOTE | 2021-11-25 12:47 | P.CNHO_ITS ---
Subjective - Subjective Chief complaint: Consult for: Pancytopenia. Patient: new to practice Consult date: 11/25/21 Requesting Physician: Lizbeth. Primary Care Provider: [facility] Medical Summary: DIAGNOSIS: PANCYTOPENIA. ALCOHOLISM. HPI - Consult Narrative Reason for consult: Consult for: Pancytopenia. Narrative: Andi Modi is a 41 year old gentleman, admitted on 11/24 with easy bruising. He presented to the hospital with complaints of left-sided chest pain. Patient reports that the pain occurred spontaneously, feels like pressure, about 4/10, nonradiating, no exacerbating or alleviating factors, intermittent. He reports that when he has action is also gets this pain, he denies any recent travel, no recent sick contacts, no recent immobilization or history of cancer. No recent surgery. He denies any cough, no shortness of breath, he has also had vomiting for the past 6 months, he reports that he has epigastric abdominal pain that is been going on for the past 6 months, associated with 1-2 episodes of vomiting daily. He has also had poor oral intake and low appetite. Patient also reports that for the past several months has had bruises all over his body that occurs spontaneously without any trauma or injury. He says that since childhood he has had recurrent nose bleeds that last 1-2 hours. He also mentions bleeding from the gums every time he brushes his teeth. He denies any hematuria and no blood in vomit. No melena or hematochezia. He does reports that he drinks >6 bottles of beer daily, has had withdrawals before but no withdrawal seizures. He denies any headache, change in vision, no urinary symptoms and no lower extremity edema. No numbness tingling or weakness. On arrival the ED patient hemodynamically stable Labs are significant for WBC count of 4.0[place] [address], PT of 15.1, INR of 1.3, PTT of 36.6, total bili of 1.7 AST of 179, ALT of 82 Urine positive for nitrites and leukocyte Estrace and some WBC. Troponin negative. EKG should reviewed by me shows T-wave inversions in V1 with no other significant abnormality no previous EKG for comparison Chest x-ray negative. Review of Systems Review of Systems: All other systems are reviewed and are negative PMFSH Medical History: Alcohol abuse. Asthma Family History; Mother: Lupus Surgical History: S/P emergency tracheotomy for assistance in breathing. Review of Systems - Constitutional Reports system reviewed and no additional complaints, except as documented - Eyes Reports system reviewed and no additional complaints, except as documented - ENT Reports system reviewed and no additional complaints, except as documented - Cardiovascular Reports system reviewed and no additional complaints, except as documented - Respiratory Reports no additional respiratory complaints - Gastrointestinal Reports system reviewed and no additional complaints, except as documented - Genitourinary Genitourinary: Reports no additional male genitourinary complaints - Musculoskeletal Reports system reviewed and no additional complaints, except as documented - Integumentary/Breasts Skin/Breast: Reports no additional skin complaints - Neurologic Denies dizziness - Psychiatric Reports system reviewed and no additional complaints, except as documented - Endocrine Reports no additional endocrine complaints - Hematologic/Lymphatic Reports system reviewed and no additional complaints, except as documented - Allergic/Immunologic Reports system reviewed and no additional complaints, except as documented Oncology Screenings - ECOG Performance Status ECOG Performance Status: 2 [facility] Medical History: Medical History (Last Updated 11/23/21 @ 21:38 by Shon Mckeon MD) Asthma Functional capacity: uses cane/walker Patient : No Family History: Family History (Last Updated 11/23/21 @ 21:38 by Shon Mckeon MD) Mother Lupus Surgical History: Surgical History (Last Updated 11/23/21 @ 21:39 by Shon Mckeon MD) S/P emergency tracheotomy for assistance in breathing Social History: Social History (Last Reviewed 11/23/21 @ 21:38 by Shon Mckeon MD) Living Situation History: Household Members: Spouse Housing: House Do you presently have visiting nurse or other home services: No Tobacco History: Patient Tobacco Use Status: Never used Tobacco Occupation Assessmet: service: No Current occupational status: employed Home Medications and Allergies Current Medications: Current Medications Acetaminophen (Acetaminophen 325 Mg Tablet) 650 mg PO Q6H PRN PRN Reason: Pain, Mild (Pain Scale 1-3) Albuterol Sulfate (Albuterol Sulfate 90 Mcg 8 Gm Inhaler) 2 puff INHALE Q4H PRN PRN Reason: shortness of breath or wheezing Docusate Sodium (Docusate Sodium 100 Mg Capsule) 100 mg PO DAILY PRN PRN Reason: Constipation Famotidine (Famotidine/Pf 20 Mg/2 Ml Vial) 20 mg IVPUSH DAILY [facility] Last Admin: 11/25/21 07:55 Dose: 20 mg Folic Acid (Folic Acid 1 Mg Tablet) 1 mg PO DAILY [facility] Last Admin: 11/25/21 07:55 Dose: 1 mg Lactated Ringer's (Lr) 1,000 mls @ 100 mls/hr IVCONT .Q10H [facility] Last Admin: 11/25/21 04:26 Dose: Not Given Ceftriaxone Sodium 1 gm/ (Sodium Chloride) 50 mls @ 100 mls/hr IV Q24H [facility] Last Infusion: 11/25/21 00:35 Dose: Infused Ondansetron HCl (Ondansetron Hcl 4 Mg/2 Ml Vial) 4 mg IVPUSH Q8H PRN PRN Reason: Nausea and Vomiting Last Admin: 11/24/21 08:09 Dose: 4 mg Pharmacy Consult (Consult Rx Etoh Phenob Po Only) 1 each MISCELLANE ONCE PRN; Protocol PRN Reason: Consult order Pharmacy Consult (Consult Rx Perform Med Rec) 1 each MISCELLANE ONCE PRN PRN Reason: Consult order Phenobarbital (Phenobarbital 15 Mg Tablet) 45 mg PO BID [facility] Stop: 11/25/21 21:01 Last Admin: 11/25/21 07:55 Dose: 45 mg Phenobarbital (Phenobarbital 30 Mg Tablet) 30 mg PO BID [facility] Stop: 11/27/21 21:01 Phenobarbital (Phenobarbital 15 Mg Tablet) 15 mg PO DAILY [facility] Stop: 11/29/21 09:01 Sodium Chloride (0.9 % Sodium Chloride Flush 3 Ml Syringe) 3 ml IVFLUSH QSHIFT [facility] Last Admin: 11/25/21 07:55 Dose: Not Given Thiamine HCl (Thiamine Hcl 100 Mg Tablet) 100 mg PO DAILY [facility] Last Admin: 11/25/21 07:55 Dose: 100 mg Allergies Allergy/AdvReac Type Severity Reaction Status Date / Time No Known Allergies Allergy Verified 07/09/21 01:54 Physical Exam Vital signs: Vital Signs Temp 99.2 F 11/25/21 11:15 Pulse 71 11/25/21 11:15 Resp 16 11/25/21 11:15 BP 146/81 H 11/25/21 11:15 Pulse Ox 98 11/25/21 11:15 O2 Del Method 11/25/21 11:15 Intake & Output 11/24/21 11/25/2122 18:59 06:59 18:59 Intake Total 1400 / 2500 1100 / 2500 Balance 1400 / 2500 1100 / 2500 Intake: Intake, Oral Amount 480 / 480 Intake, IV Amount 2019 Magnesium Sulfate/H2O 2 gm In 50 / 100 50 / 100 50 ml @ 25 mls/hr IV ONCE ONE Rx#:[id number] cefTRIAXone sodium 1 gm In 0.9 50 / 50 % Sodium Chloride 50 ml @ 100 mls/hr IV Q24H [facility] Rx#: [id number] Lactated Ringers 1,000 ml @ 100 870 / 1870 1000 / 1870 mls/hr IVCONT .Q10H [facility] Rx#: [id number] Other: Number of Unmeasured Voids 4 1 Urine Bathroom Urine Color Yellow Last Bowel Movement 11/24/21 Stool Bathroom Stool Amount Moderate Weight 78.47 kg Weight in Grams 87282 Weight 78.47 kg - Constitutional Present: moderate distress - Routine HEENT Exam Head: Present: normal inspection ENT: Present: mucous membranes moist - Routine Neck Exam Present: supple - Routine Respiratory Exam Present: CTAB - Routine Cardiovascular Exam Cardiovascular: Present: RRR, S1, S2 - Routine Abdominal Exam Present: normal bowel sounds, nontender. Absent: organomegaly - Routine Extremities Exam Present: nontender Hem/Onc Consult Result - Labs CBC & Chem 7: 11/26/21 07:30 11/25/21 06:07 Labs: Short CBC 11/25/21 Range/Units 06:07 WBC 4.9 (4.8-10.8) X10*3/uL Hgb 14.0 (14.0-18.0) g/dl Hct 40.8 L (42.0-52.0) % Plt Count 33 L D (160-400) X10*3/uL BMP 11/25/21 06:07 Sodium 133 L Potassium 4.4 Chloride 101 Carbon Dioxide 21 L BUN 9 Creatinine 0.68 Calcium 7.9 L Liver Function 11/25/21 Range/Units 06:07 Total Bilirubin 3.3 H (0.0-1.0) mg/dL Direct Bilirubin 1.5 H (0.0-0.5) mg/dL AST 118 H (5-37) U/L ALT 61 H (0-40) U/L Alkaline Phosphatase 98 (39-117) U/L Albumin 3.3 L (3.5-5.0) g/dL Assessment and Plan Patient Active problem list reviewed?: Yes (1) Pancytopenia Status: Acute Assessment and plan: This is a 41-year-old gentleman, with history of alcohol abuse, who presented with chest pain and easy bruising. He was noted to have leukopenia and thrombocytopenia. CBC from 11/24: WBC 4, HGB 13.4, HCT 39.8, PLT 24. LFTs: 3.3/98/118/61. Pancytopenia, differential diagnosis: 1. Most likely related to alcohol related liver disease with hypersplenism. 2. ITP: 3. TTP/H U.S.: Not likely. Doesn't have any significant bleeding. He is not significantly anemic, no renal dysfunction, no fragments on smear. 4. DIC: Is in the differential. 5. RELATED TO INFECTION: Could have hepatitis B or C. 6. UNDERLYING MYELO INFILTRATIVE DISORDER: ULTRASOUND OF THE ABDOMEN FROM 11/24: Cholelithiasis without wall thickening. Hepatic steatosis without focal lesion. PLAN: Will proceed with further evaluation. Check peripheral smear. Check hemolytic screen, LDH: 379.. Check hepatitis B and C profile: Negative. Check DIC screen,PT: 15.9/PTT: 37.7, Fibrinogen:370,. Continue to follow blood count over time. If PLTs falls to less than 15 will consider proceeding with a bone marrow exam for further evaluation. Thank you for the consult, Will follow along with you, Cc: - Time Spent With Patient Time Spent with Patient (in minutes): 30
[2021-11-25 13:30] LABS: Retic HGB Equivalent 36.5 pg (30.0-35.0); Reticulocyte Percent 1.7 % (0.5-1.8)
[2021-11-25 13:45] LABS: Lactate Dehydrogenase 379 U/L (118-273)
--- NOTE | 2021-11-25 13:48 | MHC.RECOVRN ---
Met with pt to follow up regarding [facility] and the [facility]. Reinforced education regarding [facility], pt is interested and requests referral to [facility]. Appointment made for 12/02/21 at 3:45PM. CM aware.
--- NOTE | 2021-11-25 14:42 | P.PNIM_ITS ---
Subjective Subjective Date of Service: 11/25/21 Interval History: Seen and examined this morning Follow-up for alcohol withdrawal, thrombocytopenia Feeling well this morning, denies anxiety, tremors Review of Systems Review of Systems: Yes all other systems are reviewed and are negative Constitutional Constitutional: Denies chills and Denies fever(s) ENT Ears, Nose, Mouth, and Throat: Denies dizziness Cardiovascular Cardiovascular: Denies chest pain, Denies palpitations and Denies dyspnea Respiratory Respiratory: Denies cough and Denies dyspnea Gastrointestinal Gastrointestinal: Denies nausea and Denies vomiting Neurologic Neurologic: Denies dizziness Endocrine Endocrine: Denies palpitations Physical Exam Vital Signs: Vital Signs: Last Vital Signs Temp 99.2 F 11/25/21 11:15 Pulse 71 11/25/21 11:15 Resp 16 11/25/21 11:15 BP 146/81 H 11/25/21 11:15 Pulse Ox 98 11/25/21 11:15 O2 Del Method 11/25/21 11:15 BMI result Body Mass Index 27.1 Const: General: cooperative, no acute distress, alert and awake Nutritional Appearance: average body habitus Orientation/consciousness: patient oriented x3 Resp: Effort & Inspection: normal respiratory effort and able to speak in complete sentences Auscultation: clear to auscultation bilaterally Cardio: Rate: regular rate Heart sounds: S1 normal heart sound present and S2 normal heart sound present GI: Inspection: No distended Palpation (GI): Soft to palpation and nontender Neuro: General: patient oriented x3 and CN's II-XI intact bilaterally Extrem: General: Yes no pedal edema Objective Data Active Medications Acetaminophen (Acetaminophen 325 Mg Tablet) 650 mg PO Q6H PRN PRN Reason: Pain, Mild (Pain Scale 1-3) Albuterol Sulfate (Albuterol Sulfate 90 Mcg 8 Gm Inhaler) 2 puff INHALE Q4H PRN PRN Reason: shortness of breath or wheezing Docusate Sodium (Docusate Sodium 100 Mg Capsule) 100 mg PO DAILY PRN PRN Reason: Constipation Famotidine (Famotidine/Pf 20 Mg/2 Ml Vial) 20 mg IVPUSH DAILY [facility] Last Admin: 11/25/21 07:55 Dose: 20 mg Documented By: YOANDY Folic Acid (Folic Acid 1 Mg Tablet) 1 mg PO DAILY [facility] Last Admin: 11/25/21 07:55 Dose: 1 mg Documented By: YOANDY Lactated Ringer's (Lr) 1,000 mls @ 100 mls/hr IVCONT .Q10H [facility] Last Admin: 11/25/21 04:26 Dose: Not Given Documented By: CHRIS Non-Admin Reason: IV Running Ceftriaxone Sodium 1 gm/ (Sodium Chloride) 50 mls @ 100 mls/hr IV Q24H [facility] Last Infusion: 11/25/21 00:35 Dose: 0 mls/hr Documented By: TREVON Ondansetron HCl (Ondansetron Hcl 4 Mg/2 Ml Vial) 4 mg IVPUSH Q8H PRN PRN Reason: Nausea and Vomiting Last Admin: 11/24/21 08:09 Dose: 4 mg Documented By: LAWRENCE Pharmacy Consult (Consult Rx Etoh Phenob Po Only) 1 each MISCELLANE ONCE PRN; Protocol PRN Reason: Consult order Pharmacy Consult (Consult Rx Perform Med Rec) 1 each MISCELLANE ONCE PRN PRN Reason: Consult order Phenobarbital (Phenobarbital 15 Mg Tablet) 45 mg PO BID [facility] Stop: 11/25/21 21:01 Last Admin: 11/25/21 07:55 Dose: 45 mg Documented By: YOANDY Phenobarbital (Phenobarbital 30 Mg Tablet) 30 mg PO BID [facility] Stop: 11/27/21 21:01 Phenobarbital (Phenobarbital 15 Mg Tablet) 15 mg PO DAILY [facility] Stop: 11/29/21 09:01 Sodium Chloride (0.9 % Sodium Chloride Flush 3 Ml Syringe) 3 ml IVFLUSH QSHIFT [facility] Last Admin: 11/25/21 07:55 Dose: Not Given Documented By: YOANDY Non-Admin Reason: IV Running Thiamine HCl (Thiamine Hcl 100 Mg Tablet) 100 mg PO DAILY [facility] Last Admin: 11/25/21 07:55 Dose: 100 mg Documented By: YOANDY Labs CBC & Chem 7: 11/25/21 06:07 11/25/21 06:07 Labs: Laboratory Results - last 24 hr 11/24/21 11/25/21 11/25/21 08:15 06:07 06:07 MCV 88.5 MCH 30.4 MCHC 34.3 RDW 14.0 Plt Count 33 L D MPV 10.6 Absolute Nucleated RBC 0.000 Nucleated RBC % (auto) 0.0 Absolute Retic 0.080 Percent Retic 1.7 Immature Retic Fraction 13.0 Retic Hgb Equivalent 36.5 H Anion Gap 15 Estim Creat Clear Calc 136.3 Estimated GFR > 60 Random Glucose 98 Calcium 7.9 L Magnesium 2.0 Total Bilirubin 3.3 H Direct Bilirubin 1.5 H AST 118 H ALT 61 H Alkaline Phosphatase 98 Lactate Dehydrogenase 393 H 379 H Total Protein 7.2 Albumin 3.3 L Hepatitis A IgM Ab Hep Bs Antigen Hep Bs Antibody Hep B Core Total Ab Hepatitis C Ab (EIA) Monoscreen 11/25/21 11/25/21 11/25/21 10:22 10:22 10:22 MCV MCH MCHC RDW Plt Count MPV Absolute Nucleated RBC Nucleated RBC % (auto) Absolute Retic Percent Retic Immature Retic Fraction Retic Hgb Equivalent Anion Gap Estim Creat Clear Calc Estimated GFR Random Glucose Calcium Magnesium Total Bilirubin Direct Bilirubin AST ALT Alkaline Phosphatase Lactate Dehydrogenase Total Protein Albumin Hepatitis A IgM Ab Nonreactive Nonreactive Hep Bs Antigen Negative Hep Bs Antibody NONREACTIVE Hep B Core Total Ab Nonreactive Hepatitis C Ab (EIA) Nonreactive Monoscreen Negative Microbiology Microbiology Results: Microbiology 11/23/21 19:05 Urine Culture - Final Urine clean catch - Urine gimenez top Assessment and Plan (1) Pancytopenia: Status: Acute (2) Alcohol withdrawal: Status: Acute (3) Thrombocytopenia: Status: Acute Plan 41-year-old male with past medical history of asthma as well as alcohol abuse presents to the hospital with complaints of left-sided chest pain as well as spontaneous bruising and nausea vomiting, found to have thrombocytopenia pancytopenia may be related to alcohol abuse, underlying liver dysfunction does have coagulopathy with abnormal PT, INR and PTT - seen by hematology - plan for further workup - repeat CBC daily and follow platelet count - transfuse if active/acute bleed or platelet drop below 10 nausea vomiting. improving tolerating diet likely secondary to gastritis in the setting of alcohol abuse lipase 105 - IV pepcid, antiemetics, supportive care elevated LFTs Likely secondary to alcohol abuse abdominal US showing hepatic steatosis, cholelithiasis Hepatitis A, B, C screen negative seen by GI - no further inpatient workup -trend LFTs Cholelithiasis Asymptomatic at this time. Discussed with patient he may need surgical evaluation if becomes symptomatic coagulopathy likely multifactorial in the setting of alcohol abuse/underlying liver dysfunction -seen by Hematology -follow-up PTT, INR, rule out DIC alcohol abuse with withdrawal - continue phenobarb protocol - continue thiamine and folic acid - care team consult pending hypo magnesemia improved to 2 replace and follow chest pain resolved troponin negative DVT prophylaxis: SCDs in the setting of thrombocytopenia attending - dr. norris Requires ongoing inpatient hospitalization for workup of thrombocytopenia, and management of acute alcohol withdrawal Quality Stroke Does the patient have a stroke diagnosis?: No VTE Prior VTE?: No VTE Risk Level:: Medical - moderate - high VTE Device Contraindication: N/A - Device Ordered VTE Drug Contraindication: Treatment Not Indicated
--- NOTE | 2021-11-25 14:55 | MHC.CM.PN ---
No DC today per MD rounds. GI and Hematology to see patient today. he has been seen by the recovery team. He has an Appointment with the [facility] 12/02/21 @ 3:45pm. DP home with community resource info provided by the Recovery team. [facility] appointment scheduled. Family will provide transport home.
[2021-11-25 15:04] LABS: Fibrinogen 370 MG/DL (259-690); INTERNATIONAL NORM RATIO 1.4 (0.9-1.1); Prothrombin Time 15.9 SEC (10.0-13.1)
[2021-11-25 15:06] LABS: Partial Thromboplastin Time 37.7 SEC (26.0-36.4)
[2021-11-25 15:28] VITALS: BP 140/81; PULSE 76; RESP 20; TEMP 37.2; O2SAT 99
[2021-11-25] MEDS: Lactated Ringers 1,000 ML 100 ML IVCONT (17:51)
[2021-11-25 19:32] VITALS: BP 132/80; PULSE 78; RESP 20; TEMP 37.2; O2SAT 98
[2021-11-25] MEDS: cefTRIAXone sodium 1 GM in 0.9 % Sodium Chloride 50 ML IV (22:19)
--- NOTE | 2021-11-25 22:31 | CONS_ITS ---
DATE OF SERVICE: 11/25/2021 REASON FOR CONSULTATION: Alcohol-induced hepatitis and gallstones. HISTORY OF PRESENT ILLNESS: This has been obtained from the patient and the medical record. The patient is a 41-year-old male with a longstanding history of alcohol abuse in which he presently describes having at least 8 beers and 10 nips daily. He describes having been doing this for quite some time now. He developed the onset of some chest discomfort with some nausea and vomiting, came to the ER for evaluation. He was noted to have elevated LFTs and significant thrombocytopenia. He was subsequently admitted. Since admission here, he has actually been feeling much better. He has been eating comfortably without any further episodes of vomiting. He denies any further episodes of chest pain or abdominal pain. There was no hematemesis, nor coffee-grounds emesis. He denies any diarrhea, melena, nor hematochezia. He denies any history of jaundice in himself, nor any previous known liver disease. He denies any known liver disease in the family. Aside from alcohol, he denies tobacco, any drug use, nor any previous history of IV drug use. He was found to have gallstones, but denies any history of right upper quadrant or epigastric pain in the past. He denies use of any new medication, either prescription or [id number]. He denies the use of any significant amounts of acetaminophen, nor NSAIDs. He denies any recent ill contacts, nor travel. He denies any signs of increasing abdominal girth, nor edema. MEDICATIONS: At Home, inhaler p.r.n. Medications here in the hospital include inhaler p.r.n., IV ceftriaxone, Colace, IV famotidine, folic acid, he is on phenobarbital, and thiamine. PAST MEDICAL HISTORY: Tracheostomy as a child. He denies any other surgeries. He denies history of heart disease, diabetes, stroke, nor kidney disease. He does have some asthma. Alcohol abuse as above. SOCIAL HISTORY: He is . He does automobile detailing. Alcohol abuse. FAMILY HISTORY: Noncontributory, although he does report that his mother had gallstones. REVIEW OF SYSTEMS: CONSTITUTIONAL: He has been feeling poorly in regard to his energy and appetite prior to coming in the hospital. CARDIAC: No chest pain other than the upper anterior discomfort on the left side that brought him to the hospital. PULMONARY: No coughing or hemoptysis. GI: As above. PHYSICAL EXAMINATION: GENERAL: The patient is a pleasant, alert, cooperative male, in no distress. He appears well at the present time. SKIN: Warm and dry. Anicteric sclerae. Moist mucous membranes. No obvious spider angiomata. CHEST: Clear. CARDIAC: Normal S1, S2. ABDOMEN: Soft, nondistended, nontender without mass. EXTREMITIES: Without edema. No palmar erythema. He is alert and answers questions appropriately. LABORATORY DATA: He was COVID negative. White blood cell count 4.9, hemoglobin 14.0. Platelet count on admission was 26,000 and today's 33,000. His PT was 15.1 with INR 1.2 on November 23 and PT was 16.2 with INR 1.4 yesterday. Sodium 133, potassium 4.4, BUN 9, creatinine 0.7. LFTs have improved with a total bilirubin of 3.4 yesterday and 3.3 today with a direct bilirubin of only 1.5. AST yesterday is 132 and today is 118. ALT yesterday was 67 and today 61. Alkaline phosphatase is normal at 98. Albumin 3.3. Lipase was 105. Alcohol level was 180 on November 23. He did have an abdominal ultrasound describing gallstones, but no sign of cholecystitis. There is no biliary disease. The liver appeared normal, although did appear to be fatty in appearance. There is no biliary disease. There is no splenomegaly, nor ascites. IMPRESSION: Given the patient's clinical history, this appears quite consistent with a mild case of alcohol-induced hepatitis. His mild coagulopathy could certainly be related to that. His thrombocytopenia may be related to that and his alcohol use. His otherwise normal abdominal ultrasound is reassuring without any sign of splenomegaly, ascites, nor any significant liver disease. He does not show any signs of liver failure and I do not think he needs any treatment with steroids. His gallstones appear to be asymptomatic at the present time. At this point, I will continue supportive care. I did review with the patient in detail the long-term need to avoid alcohol completely. We also reviewed potential symptoms of gallstones that could require a surgical consultation, but at this point, I do not think he needs that. I would check a hepatitis A, B, and C profile as well as a Monospot today to rule out other causes of his hepatitis, but again I think this is certainly likely to be alcohol induced. I did order a followup laboratories in the morning. This has been discussed with the patient in detail and he is comfortable with plan. MD BLAS Tinajero/ALECIA / [id number]
[2021-11-25 23:27] VITALS: BP 133/88; PULSE 66; RESP 16; TEMP 37.2; O2SAT 97
[2021-11-26 03:27] VITALS: BP 132/85; PULSE 65; RESP 15; TEMP 37.2; O2SAT 98
[2021-11-26] MEDS: Lactated Ringers 1,000 ML 100 ML IVCONT (03:29)
[2021-11-26 08:00] VITALS: BP 141/84; PULSE 87; RESP 18; TEMP 36.4; TEMP 36.6; O2SAT 97
[2021-11-26 08:13] LABS: Baso%MD 0.7 %; Eos%MD 2.9 %; Hematocrit 41.5 % (42.0-52.0); IG%MD 0.2 %; Lymph%MD 21.7 %; Mean Corpuscular HGB Conc 33.7 g/dl (31.0-36.0); Mean Corpuscular Hemoglobin 29.5 pg (27.0-33.0); Mean Corpuscular Volume 87.6 fL (80.0-98.0); Mean Platelet Volume 11.5 fL (9.4-12.4); Mono%MD 7.8 %; Neut%MD 66.7 %; Red Blood Count 4.74 X10*6/uL (4.60-5.80); Red Cell Distribution Width 14.4 % (11.0-16.0); White Blood Count 5.9 X10*3/uL (4.8-10.8)
[2021-11-26 08:15] LABS: Platelet Count 39 X10*3/uL (160-400)
[2021-11-26 08:25] LABS: INTERNATIONAL NORM RATIO 1.3 (0.9-1.1); Prothrombin Time 15.6 SEC (10.0-13.1)
[2021-11-26 08:34] LABS: Alanine Aminotransferase 66 U/L (0-40); Albumin Level 3.4 g/dL (3.5-5.0); Alkaline Phosphatase 103 U/L (39-117); Aspartate Amino Transferase 114 U/L (5-37); Bilirubin Direct 1.3 mg/dL (0.0-0.5); Bilirubin Total 2.3 mg/dL (0.0-1.0); Total Protein 7.2 g/dL (6.5-8.0)
[2021-11-26 08:45] LABS: Band Neutrophils Percent 1 % (3-5); Basophils Abs Manual 0.1 X10*3/uL (0.0-0.2); Basophils Percent Manual 2 % (0-2); Eosinophils Absolute Manual 0.1 X10*3/uL (0.0-0.4); Eosinophils Percent Manual 2 % (0-4); Lymphocytes Percent Manual 17 % (20-40); Monocytes Absolute Manual 0.2 X10*3/uL (0.1-1.2); Monocytes Percent Manual 4 % (2-11); Neutrophils Absolute Manual 4.4 X10*3/uL (2.0-8.3); Neutrophils Percent Manual 74 % (45-73)
[2021-11-26 08:46] LABS: Platelet Estimate DECREASED (NORMAL); Platelet Morphology Comment NORMAL; RBC Morphology NORMAL
[2021-11-26] MEDS: Thiamine HCL 100 MG TABLET PO (08:53)
[2021-11-26] MEDS: Folic Acid 1 MG TABLET PO (08:53)
[2021-11-26] MEDS: PHENobarbitaL 30 MG TABLET PO (08:54)
[2021-11-26] MEDS: 0.9 % Sodium Chloride Flush 3 ML SYRINGE IVFLUSH (08:54)
[2021-11-26] MEDS: Famotidine/PF 20 MG/2 ML VIAL IVPUSH (08:54)
--- NOTE | 2021-11-26 12:07 | PM.DS ---
DS: Providers Provider Date of Service: 11/26/21 Date of admission: 11/23/21 21:24 Date of discharge: 11/26/21 Primary care physician: [facility] Consults: 11/23/21 21:26 Consult to Hematology / Oncology Routine Consulting Provider: Carlos Alberto Rodriguez Reason for consultation: thrombocytopenia, Has provider been notified: Yes 11/24/21 08:13 Consult to Care Team Routine Comment: Reason for consultation: etoh abuse/withdrawal 11/24/21 13:10 Consult to Gastroenterology Routine Consulting Provider: Yonas Lopez Reason for consultation: elevated LFTs Has provider been notified: No Attending physician on discharge: Jaleesa Vela Discharging clinician: Darline Nieves DS: Diagnosis Discharge Diagnosis (1) Pancytopenia: Status: Acute (2) Alcohol withdrawal: Status: Acute (3) Thrombocytopenia: Status: Acute DS: Summary Hospital Course Hospital Course: From H&P on day of admission This is a 41-year-old male with past medical history of alcohol abuse, as well as asthma presents to the hospital with complaints of left-sided chest pain.? Patient reports that the pain occurred spontaneously, feels like pressure, about 4/10, nonradiating, no exacerbating or alleviating factors, intermittent.? Patient reports that when he has action is also gets this pain, he denies any recent travel, no recent sick contacts, no recent immobilization or history of cancer.? No recent surgery.? He denies any cough, no shortness of breath, he has also had vomiting for the past 6 months, he reports that he has epigastric abdominal pain that is been going on for the past 6 months, associated with 1-2 episodes of vomiting daily.? He has also had poor oral intake and low appetite. Patient also reports that for the past several months has had bruises all over his body that occurs spontaneously without any trauma or injury.? He does endorse that since childhood he has had recurrent nose bleeds that last 1-2 hours, he also endorses bleeding from the gums every time he brushes his teeth.? He denies any hematuria and no blood in vomit.? No melena or hematochezia. Does reports that he drinks >6 bottles of beer daily, has had withdrawals before but no withdrawal seizures. He denies any headache, change in vision, no urinary symptoms and no lower extremity edema.? No numbness tingling or weakness.? On arrival the ED patient hemodynamically stable Labs are significant for WBC count [place] 4.0, [place] [address], PT of 15.1, INR of 1.3, PTT of 36.6, total bili of 1.7 AST of 179, ALT of 82 urine positive for nitrites and leukocyte Estrace and some WBC Troponin negative EKG should reviewed by me shows T-wave inversions in V1 with no other significant abnormality no previous EKG for comparison Chest x-ray negative pancytopenia Likely related to alcohol abuse, underlying liver dysfunction. does have coagulopathy with abnormal PT, INR and PTT as well. WBC and H/H improved to normal range. Platelets trended up to 39 on day of discharge. Patient was seen in consultation by Hematology and recommends outpatient follow-up. nausea vomiting. Likely secondary to alcoholic gastritis. Was treated with IV Pepcid and symptoms have improved. elevated LFTs Likely secondary to alcohol abuse. abdominal US showing hepatic steatosis, cholelithiasis. Hepatitis A, B, C screen negative. seen by GI - no further inpatient workup. OUtpatient GI follow up recommended. Cholelithiasis Asymptomatic at this time.?Discussed with patient he may need surgical evaluation if becomes symptomatic alcohol use disorder with acute withdrawal. Patient was started on phenobarbital protocol. Alcohol withdrawal symptoms resolved. He is hemodynamically stable. He was supplemented with thiamine and folate and will be discharged on the same. He was seen by care team and given resources for abstaining from alcohol. He has a follow-up appointment in the [facility] next week. hypo magnesemia Improved with IV replacement. Patient does not currently have a PCP, but the importance of obtaining one was discussed in detail with both him and significant other at the bedside. Time Spent with Patient Time attestation: Total time spent providing and/or coordinating discharge services: Discharge coordination time: Greater than 30 minutes Quality: Safe Use of Opioids Does Pt have an Active Cancer Diagnosis on the Problem List?: No Quality: Stroke Does the patient have a stroke diagnosis?: No Physical Exam Vital Signs: Vital Signs: Last Vital Signs Temp 97.8 F 11/26/21 08:00 Pulse 87 11/26/21 08:00 Resp 18 11/26/21 08:00 BP 141/84 H 11/26/21 08:00 Pulse Ox 97 11/26/21 08:00 O2 Del Method 11/26/21 08:00 BMI result Body Mass Index 27.1 Const: General: cooperative, no acute distress, alert and awake Nutritional Appearance: average body habitus Orientation/consciousness: patient oriented x3 Resp: Effort & Inspection: normal respiratory effort and able to speak in complete sentences Auscultation: clear to auscultation bilaterally Cardio: Rate: regular rate Heart sounds: S1 normal heart sound present and S2 normal heart sound present GI: Inspection: No distended Palpation (GI): Soft to palpation and nontender Neuro: General: patient oriented x3 and CN's II-XI intact bilaterally Extrem: General: Yes no pedal edema DS: Data Data Completed and Pending Labs on day of discharge: Laboratory Results - last 24 hr 11/25/21 11/25/21 11/25/21 06:07 06:07 14:14 WBC RBC Hgb Hct MCV MCH MCHC RDW Plt Count MPV Absolute Nucleated RBC Nucleated RBC % (auto) Neutrophils % (Manual) Band Neutrophils % Lymphocytes % (Manual) Monocytes % (Manual) Eosinophils % (Manual) Basophils % (Manual) Abs Neuts (Manual) Lymphocytes # (Manual) Monocytes # (Manual) Eosinophils # (Manual) Basophils # (Manual) Platelet Estimate Plt Morphology Comment RBC Morphology Absolute Retic 0.080 Percent Retic 1.7 Immature Retic Fraction 13.0 Retic Hgb Equivalent 36.5 H PT INR APTT Fibrinogen Total Bilirubin Direct Bilirubin AST ALT Alkaline Phosphatase Lactate Dehydrogenase 379 H Total Protein Albumin JAE, Polyspecific NEGATIVE Positive JAE Work-up TNP 11/25/21 11/26/21 11/26/21 14:45 07:30 07:30 WBC RBC Hgb Hct MCV MCH MCHC RDW Plt Count MPV Absolute Nucleated RBC Nucleated RBC % (auto) Neutrophils % (Manual) Band Neutrophils % Lymphocytes % (Manual) Monocytes % (Manual) Eosinophils % (Manual) Basophils % (Manual) Abs Neuts (Manual) Lymphocytes # (Manual) Monocytes # (Manual) Eosinophils # (Manual) Basophils # (Manual) Platelet Estimate Plt Morphology Comment RBC Morphology Absolute Retic Percent Retic Immature Retic Fraction Retic Hgb Equivalent PT 15.9 H 15.6 H INR 1.4 H 1.3 H APTT 37.7 H Fibrinogen 370 Total Bilirubin 2.3 H Direct Bilirubin 1.3 H AST 114 H ALT 66 H Alkaline Phosphatase 103 Lactate Dehydrogenase Total Protein 7.2 Albumin 3.4 L JAE, Polyspecific Positive JAE Work-up 11/26/21 07:30 WBC 5.9 RBC 4.74 Hgb 14.0 Hct 41.5 L MCV 87.6 MCH 29.5 MCHC 33.7 RDW 14.4 Plt Count 39 L MPV 11.5 Absolute Nucleated RBC 0.000 Nucleated RBC % (auto) 0.0 Neutrophils % (Manual) 74 H Band Neutrophils % 1 L Lymphocytes % (Manual) 17 L Monocytes % (Manual) 4 Eosinophils % (Manual) 2 Basophils % (Manual) 2 Abs Neuts (Manual) 4.4 Lymphocytes # (Manual) 1.0 L Monocytes # (Manual) 0.2 Eosinophils # (Manual) 0.1 Basophils # (Manual) 0.1 Platelet Estimate DECREASED Plt Morphology Comment NORMAL RBC Morphology NORMAL Absolute Retic Percent Retic Immature Retic Fraction Retic Hgb Equivalent PT INR APTT Fibrinogen Total Bilirubin Direct Bilirubin AST ALT Alkaline Phosphatase Lactate Dehydrogenase Total Protein Albumin JAE, Polyspecific Positive JAE Work-up Discharge Plan Discharge Patient Disposition: Home, Self-Care Discharge Diagnosis: Alcohol use disorder with withdrawal Pancytopenia Elevated LFTs Referrals: [facility] [Primary Care Provider] - 1 Week Carlos Alberto Rodriguez MD [Physician] - 1 Week Yonas Lopez [Physician] - 1 Week Discharge Medications: New folic acid 1 mg Tablet 1 mg PO DAILY 30 Days Qty: 30 0RF thiamine mononitrate (vit B1) 100 mg Tablet 100 mg PO DAILY 30 Days Qty: 30 0RF Continued albuterol sulfate 90 mcg/actuation HFA aerosol inhaler 2 puff inhalation Q4-6H PRN (Reason: shortness of breath or wheezing) Qty: 6.7 0RF Discharge Orders: Discharge Order (Routine); Ordered 11/26/21 Ordered By: Darline Nieves Activity on Discharge: As tolerated Stand Alone Forms: Patient Portal Discharge page Care Plan Goals: see below Health Concerns: Alcohol use disorder with alcohol withdrawal Elevated LFTs Thrombocytopenia Abdominal pain/nausea vomiting Plan of Treatment: Alcohol use disorder/alcohol withdrawal-treated with phenobarbital. Recommend complete abstinence from alcohol Elevated LFTs are likely secondary to alcohol use. Should improve with abstinence from alcohol. Abdominal ultrasound showed evidence of hepatic steatosis as well as gall stones. Not symptomatic from gallstones at this time but may need surgical evaluation in the future. Recommend follow-up with [employer] supervisor for close monitoring of liver function, call to schedule a follow-up appointment with Gastroenterology. Thrombocytopenia/pancytopenia. Platelets have gradually started to trend upward. Recommend close follow-up with Hematology, call to schedule an appointment. Need to obtain PCP for close medical follow-up Do not drink alcohol Follow up in the [facility], appointment12/02 at 3:45 Assessment: see discharge summary Discharge Date/Time: 11/26/21 13:00
--- NOTE | 2021-11-26 12:18 | MHC.CM.PN ---
Patient has been medically cleared for dc to home today, self care.
[2021-11-29 04:36] LABS: Haptoglobin 22 mg/dL (43-212)
== END 2021-11-26 13:00 | disposition home or self-care (01) | DRG 660 ==
LOC: HO.ED 19:37 → HO.EDOVER 21:34 → HO.IMC 11-24 15:18
PROVIDERS: Internal Medicine; Internal Medicine Medical Oncology; Physician Assistant; Admitting Provider Internal Medicine; Emergency Provider Emergency Medicine Emergency Medical Services; Visit Provider Physician Assistant Medical
DX: D61.818 Other pancytopenia (principal); D68.9 Coagulation defect, unspecified; K70.10 Alcoholic hepatitis without ascites; K29.20 Alcoholic gastritis without bleeding; F10.239 Alcohol dependence with withdrawal, unspecified; K80.20 Calculus of gallbladder without cholecystitis without obstruction; E83.42 Hypomagnesemia; J45.20 Mild intermittent asthma, uncomplicated; Y90.6 Blood alcohol level of 120-199 mg/100 ml; Z20.822 Contact with and (suspected) exposure to COVID-19; Z79.899 Other long term (current) drug therapy
CPT/HCPCS: 36415; 71046; 76700; 80048; 80076; 81001; 82077; 83010; 83615; 83690; 83735; 84484; 85007; 85025; 85027; 85045; 85384; 85610; 85730; 86308; 86704; 86706; 86709; 86803; 86880; 87086; 87340; 87635; 93005; 96361; 96374; 99285; J0696; J2405; J2560; J3475

== ENCOUNTER 2023-04-15 17:43 | Emergency (ER) | payer OTHER, SELFPAY ==
[2023-04-15 17:56] VITALS: BP 149/94; PULSE 86; RESP 18; TEMP 36.6; O2SAT 98; BMI 34.5
== END 2023-04-15 18:57 | disposition left against medical advice (07) ==
PROVIDERS: Emergency Provider Emergency Medicine
DX: R50.9 Fever, unspecified (principal)
CPT/HCPCS: 99281